=== PATIENT | female | born 1955 | race Hispanic/Latino ===

== ENCOUNTER 2018-06-24 08:19 | Inpatient (IN) | payer BC, MEDICAID, OTHER ==
[2018-06-24 08:22] VITALS: BMI 39.6
--- NOTE | 2018-06-24 09:39 | ED PDOC ---
HPI: Abdomen History Per: Patient History/Exam Limitations: no limitations Location Of Pain/Discomfort: RUQ Quality Of Discomfort: "Pain" Associated Symptoms: Nausea, Vomiting Additional Complaint(s): Pt is a 62 y/o female with hx of OA, Gastric Sleeve surgery (Jan), and obesity, presents to ED with complaints of acute abdominal pain and intractable vomiting. States she woke up this morning at 5am with severe RUQ abdominal pain and numerous episodes of yellow vomiting and an inability to tolerate fluids. She also had subjective fevers and chills. She rates abdominal pain 9/10 in intensity, non radiating, sharp, and worse with movements. States she had a bowel movement this morning which she denies any bloody or tarry stools. Denies any recent illness, cough/congestion, recent alcohol or NSAID ingestion. States she had popcorn and a small meal last night. PMD: Dr. Sanches PMHX: OA, Gastric Sleeve surgery (Jan), and obesity PSurgHx: Cholecystectomy (5+ years ago), Umbilical Hernia repair, TKR, Gastric Sleeve (Jan) Medications: Celebrex Allergies: Morphine (states bp temp droped to 92 after receiving medication may years ago) Social: denies smoking, heavy alcohol, or illicit drug use <Macho Trejo - Last Filed: 06/24/18 15:41> <Hunter Rea - Last Filed: 06/25/18 12:24> Time Seen by Provider: 06/24/18 09:18 Chief Complaint (Nursing): Abdominal Pain Past Medical History Reviewed: Historical Data, Nursing Documentation, Vital Signs Vital Signs: Last Vital Signs Temp 97.6 F 06/24/18 08:22 Pulse 75 06/24/18 08:22 Resp 18 06/24/18 08:22 BP 136/67 06/24/18 08:22 Pulse Ox 99 06/24/18 08:22 - Medical History PMH: Anxiety, Arthritis, Bronchitis (2 MONTHS AGO NOT HOSPITALIZED), Gall Bladder Disease, Kidney Stones, Chronic Kidney Disease - Surgical History Surgical History: Cholecystectomy, Endoscopy - Family History Family History: States: No Known Family Hx <Macho Trejo - Last Filed: 06/24/18 15:41> Vital Signs: Last Vital Signs Temp 99.1 F 06/25/18 08:39 Pulse 97 H 06/25/18 08:39 Resp 20 06/25/18 08:39 BP 104/74 06/25/18 08:39 Pulse Ox 97 06/25/18 08:39 <Hunter Rea - Last Filed: 06/25/18 12:24> - Home Medications Home Medications: Ambulatory Orders Medication Instructions Recorded Biotin 1 cap PO DAILY 06/24/18 Calcium Citrate [Calcitrate] 1 tab PO DAILY 06/24/18 Celecoxib [celeBREX] 200 mg PO DAILY PRN 06/24/18 Cyanocobalamin [Vitamin B12 1000 1 tab PO DAILY 06/24/18 mcg Tab] Multivitamin [Multi-Vitamin Daily] 1 tab PO DAILY 06/24/18 Oxycodone HCl/Acetaminophen 1 tab PO Q8 PRN 06/24/18 [Percocet 10-325 mg Tablet] - Allergies Allergies/Adverse Reactions: Allergies Allergy/AdvReac Type Severity Reaction Status Date / Time No Known Allergies Allergy none Verified 06/25/18 08:01 Review of Systems Constitutional: Positive for: Fever, Chills ENT: Negative for: Ear Pain, Throat Swelling Cardiovascular: Negative for: Chest Pain, Palpitations, Orthopnea Respiratory: Negative for: Cough Gastrointestinal: Positive for: Nausea, Vomiting, Abdominal Pain. Negative for: Diarrhea, Melena, Hematochezia, Hematemesis Genitourinary Female: Negative for: Dysuria <Macho Trejo - Last Filed: 06/24/18 15:41> ROS Statement: Except As Marked, All Systems Reviewed And Found Negative <Hunter Rea - Last Filed: 06/25/18 12:24> Physical Exam - Physical Exam Appears: Positive for: In Acute Distress (Moderately distressed, actively vomiting and dry heaving) Head Exam: Positive for: ATRAUMATIC Skin: Positive for: Normal Color. Negative for: Diaphoresis ENT: Positive for: Normal ENT Inspection. Negative for: Nasal Congestion Neck: Positive for: Normal, Painless ROM Cardiovascular/Chest: Positive for: Regular Rate, Rhythm Respiratory: Positive for: Normal Breath Sounds. Negative for: Accessory Muscle Use, Crackles, Wheezing Gastrointestinal/Abdominal: Positive for: Bowel Sounds, Soft, Tenderness (RUQ and Epigastric region on mild palpation, no distension, bulging, organomegaly or gaurding ) Neurological/Psych: Positive for: Awake, Alert <Lasha Trejozeniakrishna - Last Filed: 06/24/18 15:41> - Reviewed Nursing Documentation Reviewed: Yes Vital Signs Reviewed: Yes <Hunter Rea - Last Filed: 06/25/18 12:24> - Laboratory Results Result Diagrams: 06/24/18 09:55 06/24/18 09:55 - ECG O2 Sat by Pulse Oximetry: 99 <Neil,Kellykrishna - Last Filed: 06/24/18 15:41> - Laboratory Results Result Diagrams: 06/25/18 05:55 06/25/18 05:55 Lab Results: pCO2 36 mm/Hg (35-45) 06/24/18 16:28 pO2 63 mm/Hg (80-100) L 06/24/18 16:28 HCO3 24.2 mmol/L (21-28) 06/24/18 16:28 ABG pH 7.42 (7.35-7.45) 06/24/18 16:28 ABG Total CO2 24.5 mmol/L (22-28) 06/24/18 16:28 ABG O2 Saturation 95.8 % (95-98) 06/24/18 16:28 ABG Base Excess -0.7 mmol/L (-2.0-3.0) 06/24/18 16:28 Leonard Test Yes 06/24/18 16:28 ABG Potassium 4.1 mmol/L (3.6-5.2) 06/24/18 16:28 A-a O2 Difference 42.0 mm/Hg 06/24/18 16:28 Sodium 135.0 mmol/L (132-148) 06/24/18 16:28 Chloride 106.0 mmol/L (98-107) 06/24/18 16:28 Glucose 158 mg/dL (65-105) H 06/24/18 16:28 Lactate 1.2 mmol/L (0.7-2.1) 06/24/18 16:28 FiO2 21.0 % 06/24/18 16:28 PT 14.2 Seconds (9.8-13.1) H 06/25/18 05:55 INR 1.3 06/25/18 05:55 APTT 31.5 Seconds (25.6-37.1) 06/25/18 05:55 Total Bilirubin 0.9 mg/dl (0.2-1.3) 06/25/18 05:55 AST 19 U/L (14-36) 06/25/18 05:55 ALT 28 U/L (9-52) 06/25/18 05:55 Alkaline Phosphatase 91 U/L (38-126) 06/25/18 05:55 Total Protein 6.4 G/DL (6.3-8.2) 06/25/18 05:55 Albumin 3.3 g/dL (3.5-5.0) L 06/25/18 05:55 Globulin 3.1 gm/dL (2.2-3.9) 06/25/18 05:55 Albumin/Globulin Ratio 1.1 (1.0-2.1) 06/25/18 05:55 Lipase 24 U/L (23-300) 06/24/18 09:55 Urine Color Yellow (YELLOW) 06/24/18 13:00 Urine Clarity Clear (Clear) 06/24/18 13:00 Urine pH 6.0 (5.0-8.0) 06/24/18 13:00 Ur Specific [place] > 1.060 (1.003-1.030) H 06/24/18 13:00 Urine Protein Negative mg/dL (NEGATIVE) 06/24/18 13:00 Urine Glucose (UA) Neg mg/dL (NEGATIVE) 06/24/18 13:00 Urine Ketones Trace mg/dL (NEGATIVE) 06/24/18 13:00 Urine Blood Negative (NEGATIVE) 06/24/18 13:00 Urine Nitrate Negative (NEGATIVE) 06/24/18 13:00 Urine Bilirubin Negative (NEGATIVE) 06/24/18 13:00 Urine Urobilinogen 0.2-1.0 mg/dL (0.2-1.0) 06/24/18 13:00 Ur Leukocyte Esterase Neg Marilyn/uL (Negative) 06/24/18 13:00 Urine RBC (Auto) 2 /hpf (0-3) 06/24/18 13:00 Urine Microscopic WBC < 1 /hpf (0-5) 06/24/18 13:00 Ur Squamous Epith Cells 1 /hpf (0-5) 06/24/18 13:00 <Orbelyan,Gerasim A - Last Filed: 06/25/18 12:24> Medical Decision Making Medical Decision Making: Pt is a 62 y/o female with hx of OA, Gastric Sleeve surgery (Jan), and obesity, presents to ED with complaints of acute abdominal pain and intractable vomiting. Zofran Reglan NS 1000L Toradol 30mg po x2 CBC, CMP, Lipase Abdomen/Pelvis CT 1020 Pt reassessed, states abdominal pain somewhat improved and vomiting is resolved CBC WBC 17, CMP, Lipase normal 1500 Pt re-assessed, states she still has abdominal pain, Toradol 30mg IV ordered Abdomen CT report reviewed: Findings suspicious for inflamed or infectious mid jejunal diverticulum close to midline but at RUQ associatd with short segment thickening at the adjacent jejucum. Discussed with Dr. Nath GI and General Surgery Resident Cipr and Flagyl x1 [id number] Holguin, will admit patient <Macho Trejo - Last Filed: 06/24/18 15:41> Disposition - Patient ED Disposition Is Patient to be Admitted: Yes Discussed With : Robin Holguin Doctor Will See Patient In The: Hospital Counseled Patient/Family Regarding: Studies Performed, Diagnosis, Need For Followup - Disposition Disposition Time: 15:46 <Macho Trejo - Last Filed: 06/24/18 15:41> - Pt Status Changed To: Hospital Disposition Of: Inpatient - Admit Certification Admit to Inpatient:: After my assessment, the patient will require hospitalization for at least two midnights. This is because of the severity of symptoms shown, intensity of services needed, and/or the medical risk in this patient being treated as an outpatient. - POA Present On Arrival: None <Hunter Rea - Last Filed: 06/25/18 12:24> - Clinical Impression Clinical Impression: Acute abdominal pain in right upper quadrant, Intractable vomiting, Diverticulitis, jejunum - Disposition Condition: FAIR
[2018-06-24] MEDS ORDERED: Sodium Chloride 0.9% 1,000 ML IV STA ×2 (09:51→15:31)
[2018-06-24 10:08] LABS: BASO # 0.1 K/uL (0.0-0.2); BASO % 0.4 % (0.0-2.0); EOS % 0.1 % (0.0-4.0); HEMOGLOBIN 14.9 g/dL (12.0-16.0); LYMPH # 0.9 K/uL (1.0-4.3); LYMPH % 4.9 % (20.0-40.0); MEAN CELL VOLUME 74.8 fl (81.0-99.0); MEAN CORPUSCULAR HEMOGLOBIN 23.8 pg (27.0-31.0); MEAN CORPUSCULAR HGB CONC 31.8 g/dL (33.0-37.0); MEAN PLATELET VOLUME 7.5 fl (7.2-11.7); MONO # 0.4 K/uL (0.0-0.8); MONO % 2.5 % (0.0-10.0); NEUT # 16.5 K/uL (1.8-7.0); NEUT % 92.1 % (50.0-75.0); PLATELET COUNT 325 K/uL (130-400); RBC 6.28 Mil/uL (3.80-5.20); RED CELL DISTRIBUTION WIDTH 17.8 % (11.5-14.5); WHITE BLOOD COUNT 17.9 K/uL (4.8-10.8)
[2018-06-24 10:11] LABS: ALB/GLOB RATIO 1.2 (1.0-2.1); ALBUMIN 4.1 g/dL (3.5-5.0); ALT/SGPT 17 U/L (9-52); AST/SGOT 20 U/L (14-36); BLOOD UREA NITROGEN 19 mg/dl (7-17); CALCIUM 9.6 mg/dL (8.4-10.2); GFR NON-AFRICAN AMERICAN > 60; LIPASE 24 U/L (23-300)
[2018-06-24 11:28] LABS: BANDS 1 % (0-2); LYMPHOCYTE 5 % (20-50); MONOCYTE 6 % (0-10); NEUTROPHIL 88 % (42-75); PLATELET ESTIMATE NORMAL (NORMAL); TOTAL CELLS COUNTED 100
[2018-06-24 11:29] LABS: ANISOCYTOSIS SLIGHT; OVALOCYTES SLIGHT; TEARDROP CELLS SLIGHT
[2018-06-24] MEDS ORDERED: Sodium Chloride 0.9% 50 ML IV ONE (11:48)
[2018-06-24] MEDS ORDERED: Iohexol 300 100 ML IJ ONE (11:48)
[2018-06-24 13:44] LABS: SQUAMOUS EPITHIAL 1 /hpf (0-5); URINE BILIRUBIN NEGATIVE (NEGATIVE); URINE BLOOD NEGATIVE (NEGATIVE); URINE CLARITY CLEAR (Clear); URINE COLOR YELLOW (YELLOW); URINE GLUCOSE (UA) NEG (NEGATIVE); URINE LEUKOCYTE ESTERASE NEG Leu/uL (Negative); URINE PROTEIN NEGATIVE (NEGATIVE); URINE UROBILINOGEN 0.2-1.0 mg/dL (0.2-1.0)
--- NOTE | 2018-06-24 14:24 | CT ---
Date of service: 06/24/2018 PROCEDURE: CT Abdomen and Pelvis with contrast HISTORY: acute abdominal pain/vomiting, s/p gastric sleeve COMPARISON: Abdomen and pelvis CT with contrast 08/09/2015. TECHNIQUE: Following the intravenous administration of iodinated contrast material, a CT examination of the abdomen and pelvis was performed from the domes of the diaphragms to the symphysis pubis with reformatted datasets provided in axial, sagittal and coronal planes. Oral contrast was not administered as per referring physician request. Contrast dose: Omnipaque 300, 95 cc Radiation dose: Total exam DLP = 794.34 mGy-cm. This CT exam was performed using one or more of the following dose reduction techniques: Automated exposure control, adjustment of the mA and/or kV according to patient size, and/or use of iterative reconstruction technique. FINDINGS: LOWER THORAX: Limited linear atelectasis or fibrosis in the bilateral bases once again. No infiltrate. Limited bilateral basilar atelectasis identified. Borderline cardiomegaly. Small hiatal hernia identified. LIVER: A stable benign lucency is seen at the left lobe liver once again with liver otherwise borderline enlarged. Prior medial left lobe lucencies are not identified at this time. No intrahepatic biliary dilatation. GALLBLADDER AND BILE DUCTS: Prior cholecystectomy. CBD normal caliber. PANCREAS: Unremarkable. No gross lesion or ductal dilatation. SPLEEN: Unremarkable. ADRENALS: Unremarkable. No mass. KIDNEYS AND URETERS: Extensive parapelvic cysts are identified bilaterally without obstructive uropathy. No radiodense urolithiasis is seen at the right kidney with a punctate intrarenal calcified at the upper midpole left kidney and also the lower pole, nonobstructive. Ureters normal caliber bilaterally. VASCULATURE: Nonaneurysmal abdominal aortic calcific atherosclerotic changes are identified. BOWEL: Postoperative changes are identified suggesting prior gastric sleeve surgery as clinically noted. Prior lap band now removed. Stomach is collapsed not well evaluated. No bowel obstruction appreciable throughout the abdomen and pelvis. Hepatic flexure in a portion of the transverse colon are interposed between the anterior abdominal wall and the liver. There is a short segment of mid small bowel best seen in images 92 through 108 which appears thick-walled and may reflect a mid jejunal loop. Sub cm calcification is seen within the lumen of this loop and to the right immediately lateral to it is a thin walled structure filled with gas and fluid layering in the dependent portion. This structure measures 3.7 x 3.5 x 7.6 cm (transverse by anteroposterior by superoinferior dimensions). Trace reaction is seen in the mesentery adjacent to the proximal portion of this structure which is thin walled. This suspicious for a large jejunal diverticulum potentially minimally and infected or inflammatory. Mural thickening may be infectious or inflammatory at the jejunal segment associated with it versus neoplasm. Further clinical correlation is strongly advised. Sigmoid diverticulosis is reiterated without complication. APPENDIX: No CT evidence of appendicitis. PERITONEUM: See bowel section for limited peritoneal reaction at central abdomen with perineum otherwise remarkable for a small fat containing umbilical hernia and a similar but slightly larger ventral abdominal hernia somewhat cephalad to the umbilicus, also only containing fat. LYMPH NODES: Unremarkable. No enlarged lymph nodes. BLADDER: Unremarkable. REPRODUCTIVE: Unremarkable. BONES: Upper limits grade 1 spondylolisthesis L4-5 again evident, degenerative. No spondylolysis once again. OTHER FINDINGS: None. IMPRESSION: 1. Findings suspicious for an inflamed or infectious mid jejunal diverticulum close to midline but at the right upper quadrant 10.6 cm greatest dimension associated with short segmental thickening at the adjacent jejunum. Is unclear whether jejunal thickening is related to infection or inflammatory with neoplasm not excluded at the loop specifically. Clinical follow-up advised. 2. Prior cholecystectomy noted once again. 3. Additional findings as discussed above.
[2018-06-24] MEDS ORDERED: Ciprofloxacin 400mg/200ml D5W 400 MG/200 ML BAG IVPB STA (14:45)
[2018-06-24] MEDS ORDERED: metroNIDAZOLE 500mg/100ml NS 100 ML IVPB STA (14:46)
[2018-06-24] MEDS ORDERED: metroNIDAZOLE 500mg/100ml NS 100 ML IVPB ONE (15:06)
--- NOTE | 2018-06-24 15:56 | CP.PCM.CON ---
History of Present Illness - History of Present Illness History of Present Illness: General Surgery Consult Note for Dr. Rodriguez This is a 62F with a PMH of arthritis and a PSH of a laparoscopic sleeve gastrectomy which she reports no adverse affects from. She lost 30lbs since the surgery. She presents today to the ER due to acute onset abdominal pain this morning. She reports she has never felt anything like this before. The pain is made worse with movement. Nothing makes it better. She reports her last BM was this morning and was normal. She reports yellow vomitus. She denies any fevers or chills at home. CT in the ED was significant for small bowel thickening possibly due to infection or mass and a possible jejunal diverticula. PMH: HTN PSH: Lap band, Lap band removal, Lap sleeve ALL: Denies however chart reflects morphine Social: Denies Vices Review of Systems - Constitutional Constitutional: Chills. absent: Anorexia - EENT Eyes: absent: Blind Spots, Blurred Vision - Cardiovascular Cardiovascular: absent: Chest Pain, Chest Pain at Rest, Dyspnea - Respiratory Respiratory: absent: Cough, Dyspnea - Gastrointestinal Gastrointestinal: Abdominal Pain, Bloating, Nausea, Vomiting. absent: Belching, Change in Bowel Habits, Change in Stool Character, Hematemesis, Hematochezia - Genitourinary Genitourinary: absent: Change in Urinary Stream Past Patient History - Past Medical History & Family History Past Medical History?: Yes - Past Social History Smoking Status: Former Smoker - CARDIAC Hx Cardiac Disorders: No - PULMONARY Hx Bronchitis: Yes (2 MONTHS AGO NOT HOSPITALIZED) - NEUROLOGICAL Hx Neurological Disorder: No - HEENT Hx HEENT Problems: No - RENAL Hx Chronic Kidney Disease: Yes Hx Kidney Stones: Yes - ENDOCRINE/METABOLIC Hx Endocrine Disorders: No - HEMATOLOGICAL/ONCOLOGICAL Hx Blood Disorders: Yes (Lichen Planus AUTO IMMUNE DISEASE ) Hx Bruising: Yes - INTEGUMENTARY Hx Dermatological Problems: Yes Other/Comment: BRUISES EASILY ON ARMS - MUSCULOSKELETAL/RHEUMATOLOGICAL Hx Arthritis: Yes - GASTROINTESTINAL Hx Gall Bladder Disease: Yes - GENITOURINARY/GYNECOLOGICAL Hx Genitourinary Disorders: Yes (ENDOMETRIAL POLYP) - PSYCHIATRIC Hx Anxiety: Yes - SURGICAL HISTORY Hx Cholecystectomy: Yes - ANESTHESIA Hx Anesthesia: Yes Hx Anesthesia Reactions: No Hx Malignant Hyperthermia: No Meds Allergies/Adverse Reactions: Allergies Allergy/AdvReac Type Severity Reaction Status Date / Time morphine AdvReac temperature Verified 04/25/16 16:13 drop - Medications Medications: Current Medications Sodium Chloride (Sodium Chloride 0.9%) 1,000 mls @ 125 mls/hr IV .Q8H STA Stop: 06/24/18 23:30 Physical Exam - Constitutional Appears: Non-toxic, No Acute Distress - Head Exam Head Exam: ATRAUMATIC, NORMOCEPHALIC - Eye Exam Eye Exam: EOMI - ENT Exam ENT Exam: Mucous Membranes Moist - Respiratory Exam Respiratory Exam: NORMAL BREATHING PATTERN - Cardiovascular Exam Cardiovascular Exam: REGULAR RHYTHM - GI/Abdominal Exam GI & Abdominal Exam: Distended, Guarding, Soft, Tenderness. absent: Hernia, Rigid - Neurological Exam Neurological exam: Alert, Oriented x3 - Psychiatric Exam Psychiatric exam: Normal Affect, Normal Mood - Skin Skin Exam: Dry, Intact Results - Vital Signs Recent Vital Signs: Last Vital Signs Temp 98.1 F 06/24/18 12:39 Pulse 87 06/24/18 12:39 Resp 18 06/24/18 12:39 BP 135/69 06/24/18 12:39 Pulse Ox 99 06/24/18 15:46 - Labs Result Diagrams: 06/24/18 09:55 06/24/18 09:55 Labs: Laboratory Results - last 24 hr 06/24/18 06/24/18 06/24/18 09:55 09:55 13:00 WBC 17.9 H D RBC 6.28 H Hgb 14.9 Hct 47.0 MCV 74.8 L D MCH 23.8 L MCHC 31.8 L RDW 17.8 H Plt Count 325 MPV 7.5 Neut % (Auto) 92.1 H Lymph % (Auto) 4.9 L [place]ley % (Auto) 2.5 Eos % (Auto) 0.1 Baso % (Auto) 0.4 Neut # (Auto) 16.5 H Lymph # (Auto) 0.9 L [place] # (Auto) 0.4 Eos # (Auto) 0.0 Baso # (Auto) 0.1 Neutrophils % (Manual) 88 H Band Neutrophils % 1 Lymphocytes % (Manual) 5 L Monocytes % (Manual) 6 Platelet Estimate Normal Anisocytosis (manual) Slight Tear Drop Cells Slight Ovalocytes Slight Sodium 145 Potassium 3.7 Chloride 106 Carbon Dioxide 25 Anion Gap 18 BUN 19 H Creatinine 0.5 L Est GFR ( Amer) > 60 Est GFR (Non-Af Amer) > 60 Random Glucose 133 H Calcium 9.6 Total Bilirubin 0.6 AST 20 ALT 17 Alkaline Phosphatase 126 Total Protein 7.4 Albumin 4.1 Globulin 3.4 Albumin/Globulin Ratio 1.2 Lipase 24 Urine Color Yellow Urine Clarity Clear Urine pH 6.0 Ur Specific [place] > 1.060 H Urine Protein Negative Urine Glucose (UA) Neg Urine Ketones Trace Urine Blood Negative Urine Nitrate Negative Urine Bilirubin Negative Urine Urobilinogen 0.2-1.0 Ur Leukocyte Esterase Neg Urine RBC (Auto) 2 Urine Microscopic WBC < 1 Ur Squamous Epith Cells 1 - Imaging and Cardiology CT scan - abdomen Status: Image reviewed by me, Report reviewed by me CT scan - pelvis Status: Image reviewed by me, Report reviewed by me Assessment & Plan - Assessment and Plan (Free Text) Assessment: 62F with abdominal pain possibly secondary to enteritis, or jejunal diverticula NPO IVF IV ABX Pain control Serial abdominal exams Possible or if symptoms do not improve Discussed with Dr. Michael Russell PGY3
--- NOTE | 2018-06-24 15:57 | CP.PCM.HP ---
<Kris Menon - Last Filed: 06/24/18 16:15> History of Present Illness - History of Present Illness History of Present Illness: CC: "I've been vomiting and having abdominal pain all morning" HPI: 62 y/o female with PMHx of polyarticular osteoarthritis, Gastric Sleeve surgery (Jan), and obesity, presented to ED with complaints of abdominal pain associated with intractable vomiting. Pt reports going to be in her usual state of good health last night but woke up with mild RUQ abdominal pain. She attempted position changes and rest but the pain worsened. She then started having episodes of NBNB emesis (>10 episodes today) that were primarily made up of consumed stomach contents. Vomiting continued to worsen to the point where she began dry heaving. Pain is located in the RUQ, sharp in character, 8/10, constant, and radiates to the LUQ. No alleviating factors but worsened with attempted PO intake and movement. Pt also reports associated subjective fevers and chills. Denies any diarrhea, hematemesis, coffee ground emesis, melena/hematochezia, diarrhea/constipation. No other complaints/concerns. Denies any sick contacts. No recent ETOH abuse and reports only sporadic celebrex consumption. ROS: 12 systems reviewed, found to be negative, unless otherwise noted in HPI. PMD: Dr. Sanches PMHX: polyarticular osteoarthritis MEDS: Celebrex ALL: hx of reaction to morphine in past, but tolerated during recent TKR w/o issue PSurgHx: Cholecystectomy (5+ years ago), Umbilical Hernia repair, TKR, Gastric Sleeve (Jan), 2x , L-TKR PHospHx: for surgeries/deliveries, otherwise denies SocialHx: denies smoking, heavy alcohol, or illicit drug use FamilyHx: denies hx of [place], [place], Stroke Next of Kin: Sabino, Code Status: full code Present on Admission - Present on Admission Any Indicators Present on Admission: No History of DVT/PE: No History of Uncontrolled Diabetes: No Urinary Catheter: No Decubitus Ulcer Present: No Past Patient History - Past Medical History & Family History Past Medical History?: Yes - Past Social History Smoking Status: Former Smoker Alcohol: None Drugs: Denies Home Situation {Lives}: With Family - CARDIAC Hx Cardiac Disorders: No - PULMONARY Hx Bronchitis: Yes (2 MONTHS AGO NOT HOSPITALIZED) - NEUROLOGICAL Hx Neurological Disorder: No - HEENT Hx HEENT Problems: No - RENAL Hx Chronic Kidney Disease: Yes Hx Kidney Stones: Yes - ENDOCRINE/METABOLIC Hx Endocrine Disorders: No - HEMATOLOGICAL/ONCOLOGICAL Hx Blood Disorders: Yes (Lichen Planus AUTO IMMUNE DISEASE ) Hx Bruising: Yes - INTEGUMENTARY Hx Dermatological Problems: Yes Other/Comment: BRUISES EASILY ON ARMS - MUSCULOSKELETAL/RHEUMATOLOGICAL Hx Arthritis: Yes - GASTROINTESTINAL Hx Gall Bladder Disease: Yes - GENITOURINARY/GYNECOLOGICAL Hx Genitourinary Disorders: Yes (ENDOMETRIAL POLYP) - PSYCHIATRIC Hx Anxiety: Yes - SURGICAL HISTORY Hx Cholecystectomy: Yes - ANESTHESIA Hx Anesthesia: Yes Hx Anesthesia Reactions: No Hx Malignant Hyperthermia: No Meds Allergies/Adverse Reactions: Allergies Allergy/AdvReac Type Severity Reaction Status Date / Time morphine AdvReac temperature Verified 08/09/15 16:13 drop Physical Exam - Constitutional Appears: Non-toxic, No Acute Distress - Head Exam Head Exam: ATRAUMATIC, NORMOCEPHALIC - Eye Exam Eye Exam: EOMI, PERRL. absent: Scleral icterus Pupil Exam: NORMAL ACCOMODATION - ENT Exam ENT Exam: Mucous Membranes Moist, Normal Exam, Normal Oropharynx, TM's Normal Bilaterally - Neck Exam Neck exam: Positive for: Normal Inspection - Respiratory Exam Respiratory Exam: Clear to Auscultation Bilateral, NORMAL BREATHING PATTERN. absent: Rales, Rhonchi, Wheezes, Respiratory Distress - Cardiovascular Exam Cardiovascular Exam: REGULAR RHYTHM, RRR, +S1, +S2. absent: Tachycardia, Irregular Rhythm, JVD, Rubs, Systolic Murmur - GI/Abdominal Exam GI & Abdominal Exam: Guarding (voluntary guarding ), Normal Bowel Sounds, Soft, Tenderness (generalized ). absent: Distended, Firm, Rebound, Rigid - Extremities Exam Extremities exam: Positive for: normal capillary refill, normal inspection, pedal pulses present. Negative for: calf tenderness, joint swelling, pedal edema - Neurological Exam Neurological exam: Alert, CN II-XII Intact, Normal Gait, Oriented x3 - Psychiatric Exam Psychiatric exam: Normal Affect, Normal Mood - Skin Skin Exam: Dry, Intact, Normal Color, Warm Results - Vital Signs Recent Vital Signs: Last Vital Signs Temp 98.1 F 06/24/18 12:39 Pulse 87 06/24/18 12:39 Resp 18 06/24/18 12:39 BP 135/69 06/24/18 12:39 Pulse Ox 99 06/24/18 15:46 - Labs Result Diagrams: 06/24/18 09:55 06/24/18 09:55 Labs: Laboratory Results - last 24 hr 06/24/18 06/24/18 06/24/18 09:55 09:55 13:00 WBC 17.9 H D RBC 6.28 H Hgb 14.9 Hct 47.0 MCV 74.8 L D MCH 23.8 L MCHC 31.8 L RDW 17.8 H Plt Count 325 MPV 7.5 Neut % (Auto) 92.1 H Lymph % (Auto) 4.9 L [place] % (Auto) 2.5 Eos % (Auto) 0.1 Baso % (Auto) 0.4 Neut # (Auto) 16.5 H Lymph # (Auto) 0.9 L [place] # (Auto) 0.4 Eos # (Auto) 0.0 Baso # (Auto) 0.1 Neutrophils % (Manual) 88 H Band Neutrophils % 1 Lymphocytes % (Manual) 5 L Monocytes % (Manual) 6 Platelet Estimate Normal Anisocytosis (manual) Slight Tear Drop Cells Slight Ovalocytes Slight Sodium 145 Potassium 3.7 Chloride 106 Carbon Dioxide 25 Anion Gap 18 BUN 19 H Creatinine 0.5 L Est GFR ( Amer) > 60 Est GFR (Non-Af Amer) > 60 Random Glucose 133 H Calcium 9.6 Total Bilirubin 0.6 AST 20 ALT 17 Alkaline Phosphatase 126 Total Protein 7.4 Albumin 4.1 Globulin 3.4 Albumin/Globulin Ratio 1.2 Lipase 24 Urine Color Yellow Urine Clarity Clear Urine pH 6.0 Ur Specific [place] > 1.060 H Urine Protein Negative Urine Glucose (UA) Neg Urine Ketones Trace Urine Blood Negative Urine Nitrate Negative Urine Bilirubin Negative Urine Urobilinogen 0.2-1.0 Ur Leukocyte Esterase Neg Urine RBC (Auto) 2 Urine Microscopic WBC < 1 Ur Squamous Epith Cells 1 Assessment & Plan - Assessment and Plan (Free Text) Assessment: 62 y/o female with a PMHx of polyarticular osteoarthritis admitted for abdominal pain with intractable vomiting secondary to jejunal diverticulitis. Plan: 1) Jejunal Diverticulitis w Leukocytosis -NPO -IV Fluid therapy -Pain control as per pain scale -nausea/vomiting control with Zofran PRN -IV Zosyn -Metronidazole 500mg Q8H -GI consult -Gen/Surg consult -lipase WNL -WBC 17.9 -repeat AM labs 2) Prophylaxis Lovenox 40mg SC QD 3) Diet -NPO 4) Code status -full code <Robin Holguin D - Last Filed: 06/24/18 16:41> Results - Vital Signs Recent Vital Signs: Last Vital Signs Temp 100.1 F H 06/24/18 16:32 Pulse 97 H 06/24/18 16:32 Resp 16 06/24/18 16:32 BP 108/56 L 06/24/18 16:32 Pulse Ox 97 06/24/18 16:32 - Labs Result Diagrams: 06/24/18 09:55 06/24/18 09:55 Labs: Laboratory Results - last 24 hr 06/24/18 06/24/18 06/24/18 09:55 09:55 13:00 WBC 17.9 H D RBC 6.28 H Hgb 14.9 Hct 47.0 MCV 74.8 L D MCH 23.8 L MCHC 31.8 L RDW 17.8 H Plt Count 325 MPV 7.5 Neut % (Auto) 92.1 H Lymph % (Auto) 4.9 L [place] % (Auto) 2.5 Eos % (Auto) 0.1 Baso % (Auto) 0.4 Neut # (Auto) 16.5 H Lymph # (Auto) 0.9 L [place] # (Auto) 0.4 Eos # (Auto) 0.0 Baso # (Auto) 0.1 Neutrophils % (Manual) 88 H Band Neutrophils % 1 Lymphocytes % (Manual) 5 L Monocytes % (Manual) 6 Platelet Estimate Normal Anisocytosis (manual) Slight Tear Drop Cells Slight Ovalocytes Slight Sodium 145 Potassium 3.7 Chloride 106 Carbon Dioxide 25 Anion Gap 18 BUN 19 H Creatinine 0.5 L Est GFR ( Amer) > 60 Est GFR (Non-Af Amer) > 60 Random Glucose 133 H Calcium 9.6 Total Bilirubin 0.6 AST 20 ALT 17 Alkaline Phosphatase 126 Total Protein 7.4 Albumin 4.1 Globulin 3.4 Albumin/Globulin Ratio 1.2 Lipase 24 Urine Color Yellow Urine Clarity Clear Urine pH 6.0 Ur Specific [place] > 1.060 H Urine Protein Negative Urine Glucose (UA) Neg Urine Ketones Trace Urine Blood Negative Urine Nitrate Negative Urine Bilirubin Negative Urine Urobilinogen 0.2-1.0 Ur Leukocyte Esterase Neg Urine RBC (Auto) 2 Urine Microscopic WBC < 1 Ur Squamous Epith Cells 1 Attending/Attestation - Attestation I have personally seen and examined this patient.: Yes I have fully participated in the care of the patient.: Yes I have reviewed all pertinent clinical information: Yes Notes (Text): 06/24/18 16:36 Patient seen and examined with resident. Case discussed and agreed with assessment and plan of management. CT scan showed thickening at mid-portion of jejunum suspicious for diverticulitis.
[2018-06-24] MEDS ORDERED: Ciprofloxacin 400mg/200ml D5W 400 MG/200 ML BAG IVPB ONE (16:16)
[2018-06-24] MEDS ORDERED: Morphine 4 MG/ML VIAL IVP PRN (16:19)
[2018-06-24 16:44] LABS: ABG ALLEN TEST YES; ARTERIAL BLOOD GAS HCO3 24.2 mmol/L (21-28); ARTERIAL BLOOD GAS O2 SAT 95.8 % (95-98); ARTERIAL BLOOD GAS PCO2 36 mm/Hg (35-45); ARTERIAL BLOOD GAS PH 7.42 (7.35-7.45); ARTERIAL BLOOD GAS PO2 63 mm/Hg (80-100); ARTERIAL BLOOD GAS TCO2 24.5 mmol/L (22-28)
[2018-06-24 17:09] LABS: INR 1.1; PROTHROMBIN TIME 12.3 Seconds (9.8-13.1)
[2018-06-24 17:11] LABS: PARTIAL THROMBOPLASTIN TIME 32.4 Seconds (25.6-37.1)
[2018-06-24] MEDS: metroNIDAZOLE 500mg/100ml NS 100 ML IVPB SCH (17:59)
[2018-06-24] MEDS: Lactated Ringer's 1,000 ML IV SCH ×2 (18:51→22:29)
[2018-06-24] MEDS: HYDROmorphone 0.5 mg/0.5 ml ISec IVP PRN (21:11)
[2018-06-24] MEDS: Piperacillin/Tazobact 3.375 GM in Sodium Chloride 0.9% 100 ML IVPB SCH (21:12)
[2018-06-25] MEDS: metroNIDAZOLE 500mg/100ml NS 100 ML IVPB SCH (00:12)
[2018-06-25] MEDS: Morphine 4 MG/ML VIAL IVP PRN ×2 (02:50→11:23)
[2018-06-25] MEDS: Lactated Ringer's 1,000 ML IV SCH ×4 (03:08→13:57)
[2018-06-25] MEDS: Piperacillin/Tazobact 3.375 GM in Sodium Chloride 0.9% 100 ML IVPB SCH ×4 (04:32→22:30)
[2018-06-25 06:39] LABS: HEMOGLOBIN 13.2 g/dL (12.0-16.0); MEAN CELL VOLUME 74.5 fl (81.0-99.0); MEAN CORPUSCULAR HEMOGLOBIN 23.3 pg (27.0-31.0); MEAN CORPUSCULAR HGB CONC 31.3 g/dL (33.0-37.0); RBC 5.68 Mil/uL (3.80-5.20); RED CELL DISTRIBUTION WIDTH 17.6 % (11.5-14.5); WHITE BLOOD COUNT 13.4 K/uL (4.8-10.8)
[2018-06-25 06:44] LABS: INR 1.3; PROTHROMBIN TIME 14.2 Seconds (9.8-13.1)
[2018-06-25 06:45] LABS: PARTIAL THROMBOPLASTIN TIME 31.5 Seconds (25.6-37.1)
[2018-06-25] MEDS: HYDROmorphone 0.5 mg/0.5 ml ISec IVP PRN (06:50)
[2018-06-25 07:08] LABS: ALB/GLOB RATIO 1.1 (1.0-2.1); ALBUMIN 3.3 g/dL (3.5-5.0); ALT/SGPT 28 U/L (9-52); AST/SGOT 19 U/L (14-36); BLOOD UREA NITROGEN 19 mg/dl (7-17); GFR NON-AFRICAN AMERICAN > 60
[2018-06-25] MEDS: Enoxaparin 40 mg Syringe SC SCH (09:45)
--- NOTE | 2018-06-25 10:53 | CP.PCM.PN ---
<Kris Menon - Last Filed: 06/25/18 10:54> Subjective - Date & Time of Evaluation Date of Evaluation: 06/25/18 Time of Evaluation: 10:53 - Subjective Subjective: pt seen and evaluated at bedside this morning. No acute events overnight. Pt reports no change in abdominal pain since yesterday, but reports no episodes of vomiting or diarrhea. Pain is controlled with medications. Remained NPO. No new complaints or concerns. Spiked low grade, 100.1 F temperature yesterday but today is afebrile and hemodynamically stable. Objective - Vital Signs/Intake and Output Vital Signs (last 24 hours): Temp Pulse Resp BP Pulse Ox 99.1 F 97 H 20 104/74 97 06/25/18 08:39 06/25/18 08:39 06/25/18 08:39 06/25/18 08:39 06/25/18 08:39 - Medications Medications: Current Medications Enoxaparin Sodium (Lovenox) 40 mg SC DAILY [facility]; Protocol Last Admin: 06/25/18 09:45 Dose: Not Given Hydromorphone HCl (Dilaudid) 0.5 mg IVP Q6 PRN PRN Reason: Pain, severe (8-10) Last Admin: 06/25/18 06:50 Dose: 0.5 mg Lactated Ringer's (Lactated Ringer's) 1,000 mls @ 150 mls/hr IV .Q6H40M [facility] Last Admin: 06/25/18 05:26 Dose: Not Given Piperacillin Sod/Tazobactam (Sod 3.375 gm/ Sodium Chloride) 100 mls @ 100 mls/hr IVPB Q6 [facility]; Protocol Last Admin: 06/25/18 09:48 Dose: 100 mls/hr Ketorolac Tromethamine (Toradol) 30 mg IVP Q6 PRN PRN Reason: Pain, Mild (1-3) Morphine Sulfate (Morphine) 2 mg IVP Q4 PRN PRN Reason: Pain, moderate (4-7) Last Admin: 06/25/18 02:50 Dose: 2 mg Ondansetron HCl (Zofran Inj) 4 mg IVP Q6 PRN PRN Reason: Nausea/Vomiting - Labs Labs: 06/25/18 05:55 06/25/18 05:55 PT 14.2 Seconds (9.8-13.1) H 06/25/18 05:55 INR 1.3 06/25/18 05:55 APTT 31.5 Seconds (25.6-37.1) 06/25/18 05:55 - Constitutional Appears: Non-toxic, No Acute Distress - Head Exam Head Exam: ATRAUMATIC - Eye Exam Eye Exam: EOMI, PERRL. absent: Scleral icterus - ENT Exam ENT Exam: Mucous Membranes Moist - Neck Exam Neck Exam: Full ROM. absent: Lymphadenopathy - Respiratory Exam Respiratory Exam: Clear to Ausculation Bilateral, NORMAL BREATHING PATTERN. absent: Rales, Rhonchi, Wheezes, Respiratory Distress - Cardiovascular Exam Cardiovascular Exam: REGULAR RHYTHM, RRR, +S1, +S2. absent: JVD, Murmur - GI/Abdominal Exam GI & Abdominal Exam: Guarding (voluntary guarding ), Soft, Tenderness (remains tender in RUQ/Epigastrium, no improvement ), Normal Bowel Sounds. absent: Distended, Firm, Rigid, Hernia, Mass, Pulsatile Mass - Extremities Exam Extremities Exam: Normal Capillary Refill. absent: Calf Tenderness, Pedal Edema, Tenderness - Neurological Exam Neurological Exam: Alert, Awake, CN II-XII Intact, Normal Gait, Oriented x3 - Psychiatric Exam Psychiatric exam: Normal Affect, Normal Mood - Skin Skin Exam: Dry, Intact, Normal Color, Warm Assessment and Plan - Assessment and Plan (Free Text) Assessment: 62 y/o female with a PMHx of polyarticular osteoarthritis admitted for abdominal pain with intractable vomiting secondary to jejunal diverticulitis. Plan: 1) Jejunal Diverticulitis w Leukocytosis -WBC improving -NPO -possible OR today as per surg team -IV Fluid therapy w LR -Pain control as per pain scale -nausea/vomiting control with Zofran PRN -IV Zosyn -GI consult -Gen/Surg consult -lipase WNL -repeat AM labs 2) Prophylaxis -SCDs -lovenox held for possible OR 3) Diet -NPO 4) Code status -full code <Robin Holguin D - Last Filed: 06/25/18 11:31> Objective - Vital Signs/Intake and Output Vital Signs (last 24 hours): Temp Pulse Resp BP Pulse Ox 99.1 F 97 H 20 104/74 97 06/25/18 08:39 06/25/18 08:39 06/25/18 08:39 06/25/18 08:39 06/25/18 08:39 - Medications Medications: Current Medications Enoxaparin Sodium (Lovenox) 40 mg SC DAILY [facility]; Protocol Last Admin: 06/25/18 09:45 Dose: Not Given Hydromorphone HCl (Dilaudid) 0.5 mg IVP Q6 PRN PRN Reason: Pain, severe (8-10) Last Admin: 06/25/18 06:50 Dose: 0.5 mg Lactated Ringer's (Lactated Ringer's) 1,000 mls @ 150 mls/hr IV .Q6H40M [facility] Last Admin: 06/25/18 05:26 Dose: Not Given Piperacillin Sod/Tazobactam (Sod 3.375 gm/ Sodium Chloride) 100 mls @ 100 mls/h r IVPB Q6 [facility]; Protocol Last Admin: 06/25/18 09:48 Dose: 100 mls/hr Ketorolac Tromethamine (Toradol) 30 mg IVP Q6 PRN PRN Reason: Pain, Mild (1-3) Morphine Sulfate (Morphine) 2 mg IVP Q4 PRN PRN Reason: Pain, moderate (4-7) Last Admin: 06/25/18 11:23 Dose: 2 mg Ondansetron HCl (Zofran Inj) 4 mg IVP Q6 PRN PRN Reason: Nausea/Vomiting - Labs Labs: 06/25/18 05:55 06/25/18 05:55 PT 14.2 Seconds (9.8-13.1) H 06/25/18 05:55 INR 1.3 06/25/18 05:55 APTT 31.5 Seconds (25.6-37.1) 06/25/18 05:55 Attending/Attestation - Attestation I have personally seen and examined this patient.: Yes I have fully participated in the care of the patient.: Yes I have reviewed all pertinent clinical information, including history, physical exam and plan: Yes Notes (Text): 06/25/18 11:29 Patient seen and examined with resident. Case discussed and agreed with assessment. 62 yo female diagnosed with jejunal diverticulitis, post gastric sleeve. Patient claimed she is presently pain free and has been afebrile since last night.
[2018-06-25] MEDS ORDERED: Lidocaine 1% w Epi 1:100,000 Inj ONE (14:35)
[2018-06-25] MEDS ORDERED: Bupivacaine HCl 0.5% PF (30 ml) Inj ONE (15:34)
[2018-06-25] MEDS ORDERED: Midazolam 2 MG/2 ML VIAL ONE (16:52)
[2018-06-25] MEDS ORDERED: Propofol 10 mg/ml Inj (20 ML) ONE (16:52)
[2018-06-25] MEDS ORDERED: Lidocaine/Epi 1% 1:100000 20 ML IJ ONE (17:15)
[2018-06-25] MEDS ORDERED: Bupivacaine 0.5% Inj(30mL) IJ ONE (17:15)
--- NOTE | 2018-06-25 17:20 | CP.PCM.CON ---
History of Present Illness - History of Present Illness History of Present Illness: 62 yo female presenting with severe midbadominal pain on day before admission. Ct demonstrated jejunal diverticululum associated with inflammation. Has been on antibiotics since yesterday and is now feeling better. Review of Systems - Constitutional Constitutional: absent: Chills - EENT Eyes: absent: Blurred Vision Ears: absent: Ear Discharge Nose/Mouth/Throat: absent: Epistaxis - Cardiovascular Cardiovascular: absent: Chest Pain - Respiratory Respiratory: absent: Dyspnea - Gastrointestinal Gastrointestinal: As Per HPI - Genitourinary Genitourinary: absent: Change in Urinary Stream Past Patient History - Past Medical History & Family History Past Medical History?: Yes - Past Social History Smoking Status: Never Smoked - CARDIAC Hx Cardiac Disorders: No - PULMONARY Hx Respiratory Disorders: No - NEUROLOGICAL Hx Neurological Disorder: No - HEENT Hx HEENT Problems: No - RENAL Hx Chronic Kidney Disease: No Other/Comment: kidney stone - ENDOCRINE/METABOLIC Hx Endocrine Disorders: No - HEMATOLOGICAL/ONCOLOGICAL Hx Blood Disorders: No - INTEGUMENTARY Hx Dermatological Problems: No - MUSCULOSKELETAL/RHEUMATOLOGICAL Hx Musculoskeletal Disorders: Yes Hx Falls: No Hx Spinal Stenosis: Yes - GASTROINTESTINAL Hx Gastrointestinal Disorders: No Hx Gall Bladder Disease: Yes - GENITOURINARY/GYNECOLOGICAL Hx Genitourinary Disorders: No - PSYCHIATRIC Hx Psychophysiologic Disorder: Yes Hx Anxiety: Yes Hx Substance Use: No - SURGICAL HISTORY Hx Surgeries: Yes Hx Section: Yes Hx Cholecystectomy: Yes Hx Herniorrhaphy: Yes (umbilical) Hx Joint Replacement: Yes (left tkr) - ANESTHESIA Hx Anesthesia: Yes Hx Anesthesia Reactions: No Hx Malignant Hyperthermia: No Has any member of the family had a problem w/ anesthesia?: No Meds Allergies/Adverse Reactions: Allergies Allergy/AdvReac Type Severity Reaction Status Date / Time No Known Allergies Allergy none Verified 06/25/18 08:01 - Medications Medications: Current Medications Enoxaparin Sodium (Lovenox) 40 mg SC DAILY [facility]; Protocol Last Admin: 06/25/18 09:45 Dose: Not Given Hydromorphone HCl (Dilaudid) 0.5 mg IVP Q6 PRN PRN Reason: Pain, severe (8-10) Last Admin: 06/25/18 06:50 Dose: 0.5 mg Lactated Ringer's (Lactated Ringer's) 1,000 mls @ 150 mls/hr IV .Q6H40M [facility] Last Admin: 06/25/18 13:57 Dose: 150 mls/hr Piperacillin Sod/Tazobactam (Sod 3.375 gm/ Sodium Chloride) 100 mls @ 100 mls/hr IVPB Q6 [facility]; Protocol Last Admin: 06/25/18 09:48 Dose: 100 mls/hr Ketorolac Tromethamine (Toradol) 30 mg IVP Q6 PRN PRN Reason: Pain, Mild (1-3) Morphine Sulfate (Morphine) 2 mg IVP Q4 PRN PRN Reason: Pain, moderate (4-7) Last Admin: 06/25/18 11:23 Dose: 2 mg Ondansetron HCl (Zofran Inj) 4 mg IVP Q6 PRN PRN Reason: Nausea/Vomiting Physical Exam - Constitutional Appears: No Acute Distress - Head Exam Head Exam: NORMAL INSPECTION - Eye Exam Eye Exam: Normal appearance - ENT Exam ENT Exam: Mucous Membranes Moist, Normal Exam - Neck Exam Neck exam: Positive for: Normal Inspection - Respiratory Exam Respiratory Exam: Clear to Auscultation Bilateral, NORMAL BREATHING PATTERN - Cardiovascular Exam Cardiovascular Exam: REGULAR RHYTHM, +S1, +S2 - GI/Abdominal Exam GI & Abdominal Exam: Normal Bowel Sounds, Tenderness Additional comments: marked midabdominal ternderness just right of umbillicus Results - Vital Signs Recent Vital Signs: Last Vital Signs Temp 99.7 F H 06/25/18 16:28 Pulse 99 H 06/25/18 16:28 Resp 20 06/25/18 16:28 BP 117/75 06/25/18 16:28 Pulse Ox 93 L 06/25/18 16:28 - Labs Result Diagrams: 06/25/18 05:55 06/25/18 05:55 Labs: Laboratory Results - last 24 hr 06/25/18 06/25/18 06/25/18 00:00 05:55 05:55 WBC 13.4 H RBC 5.68 H Hgb 13.2 Hct 42.3 MCV 74.5 L MCH 23.3 L MCHC 31.3 L RDW 17.6 H Plt Count 290 PT INR APTT Sodium 140 Potassium 3.9 Chloride 106 Carbon Dioxide 24 Anion Gap 14 BUN 19 H Creatinine 0.7 Est GFR ( Amer) > 60 Est GFR (Non-Af Amer) > 60 Random Glucose 114 H Calcium 9.0 Total Bilirubin 0.9 AST 19 ALT 28 Alkaline Phosphatase 91 Total Protein 6.4 Albumin 3.3 L Globulin 3.1 Albumin/Globulin Ratio 1.1 Blood Type Blood Type Confirm A NEGATIVE Antibody Screen BBK History Checked 06/25/18 06/25/18 05:55 05:55 WBC RBC Hgb Hct MCV MCH MCHC RDW Plt Count PT 14.2 H INR 1.3 APTT 31.5 Sodium Potassium Chloride Carbon Dioxide Anion Gap BUN Creatinine Est GFR ( Amer) Est GFR (Non-Af Amer) Random Glucose Calcium Total Bilirubin AST ALT Alkaline Phosphatase Total Protein Albumin Globulin Albumin/Globulin Ratio Blood Type A NEGATIVE Blood Type Confirm Antibody Screen Negative BBK History Checked No verified bt - Imaging and Cardiology CT scan - abdomen Status: Image reviewed by me, Report reviewed by me Assessment & Plan (1) Diverticulitis, jejunum Assessment and Plan: Has improved somewhat on antibiotics. Risk of complications are high and patient going today to the OR. Status: Acute
[2018-06-25] MEDS ORDERED: Rocuronium 10 mg/ml (5 ml) ONE (18:03)
[2018-06-25] MEDS ORDERED: Desflurane Inhalation Anesthetic Liq (240 ml) ONE (18:31)
--- NOTE | 2018-06-25 19:33 | PCM.SURG1 ---
Surgeon's Initial Post Op Note - Surgeon's Notes Surgeon: Dr. Rodriguez Service Observer Chief: Dr. Russell PGY3 Type of Anesthesia: General Endo Anesthesia Administered By: Dr. Hahn Pre-Operative Diagnosis: Focal Peritonitis Operative Findings: See operative dictation Post-Operative Diagnosis: Necrotic perforated Small bowel Diverticulum Operation Performed: Exploratory laparoscopy converted to open small bowel resection with primary anastamosis Specimen/Specimens Removed: Small bowel with diverticulum Estimated Blood Loss: EBL {In ML}: 100 Blood Products Given: N/A Drains Used: No Drains Post-Op Condition: Good Date of Surgery/Procedure: 06/25/18 Time of Surgery/Procedure: 19:33
[2018-06-25] MEDS ORDERED: HYDROmorphone 0.5 mg/0.5 ml ISec IVP PRN (19:52)
[2018-06-26] MEDS: Morphine 4 MG/ML VIAL IVP PRN ×3 (02:00→13:30)
[2018-06-26] MEDS: Lactated Ringer's 1,000 ML IV SCH ×5 (02:07→21:28)
[2018-06-26] MEDS: Piperacillin/Tazobact 3.375 GM in Sodium Chloride 0.9% 100 ML IVPB SCH ×4 (04:24→21:30)
[2018-06-26 06:46] LABS: HEMOGLOBIN 12.2 g/dL (12.0-16.0); MEAN CELL VOLUME 74.3 fl (81.0-99.0); MEAN CORPUSCULAR HEMOGLOBIN 23.6 pg (27.0-31.0); MEAN CORPUSCULAR HGB CONC 31.8 g/dL (33.0-37.0); RBC 5.18 Mil/uL (3.80-5.20); RED CELL DISTRIBUTION WIDTH 17.6 % (11.5-14.5); WHITE BLOOD COUNT 14.8 K/uL (4.8-10.8)
[2018-06-26 07:13] LABS: ALBUMIN 2.8 g/dL (3.5-5.0); ALT/SGPT 21 U/L (9-52); AST/SGOT 16 U/L (14-36); BLOOD UREA NITROGEN 13 mg/dl (7-17); CALCIUM 8.5 mg/dL (8.4-10.2); GFR NON-AFRICAN AMERICAN > 60
[2018-06-26] MEDS: Enoxaparin 40 mg Syringe SC SCH (09:10)
--- NOTE | 2018-06-26 09:29 | CP.PCM.PN ---
<Kris Menon - Last Filed: 06/26/18 13:20> Subjective - Date & Time of Evaluation Date of Evaluation: 06/26/18 Time of Evaluation: 09:29 - Subjective Subjective: pt seen and evaluated at bedside this morning. Pt is s/p Exploratory laparoscopy converted to open small bowel resection with primary anastamosis POD#1. No acute events overnight. Sitting up at bedside in chair, comfortably, NAD. OOB/ambulating today w/o issue. Tolerating incentive spirometry. Pain is controlled with medications. Low grade fevers in high 99s otherwise with stable BP. No new complaints/concerns. Objective - Vital Signs/Intake and Output Vital Signs (last 24 hours): Temp Pulse Resp BP Pulse Ox 99.7 F H 108 H 19 109/69 95 06/26/18 01:00 06/26/18 01:00 06/26/18 01:00 06/26/18 01:00 06/26/18 01:00 Intake and Output: 06/26/18 06/26/18 06:59 18:59 Output Total 300 Balance -300 - Medications Medications: Current Medications Enoxaparin Sodium (Lovenox) 40 mg SC DAILY [facility]; Protocol Last Admin: 06/26/18 09:10 Dose: 40 mg Hydromorphone HCl (Dilaudid) 0.5 mg IVP Q3H PRN PRN Reason: Pain, severe (8-10) Lactated Ringer's (Lactated Ringer's) 1,000 mls @ 150 mls/hr IV .Q6H40M [facility] Last Admin: 06/26/18 09:14 Dose: Not Given Piperacillin Sod/Tazobactam (Sod 3.375 gm/ Sodium Chloride) 100 mls @ 100 mls/hr IVPB Q6 [facility]; Protocol Last Admin: 06/26/18 09:12 Dose: 100 mls/hr Ketorolac Tromethamine (Toradol) 30 mg IVP Q6 PRN PRN Reason: Pain, Mild (1-3) Morphine Sulfate (Morphine) 2 mg IVP Q4 PRN PRN Reason: Pain, moderate (4-7) Last Admin: 06/26/18 08:44 Dose: 2 mg Morphine Sulfate (Morphine) 2 mg IVP Q10M PRN PRN Reason: Pain, moderate (4-7) Ondansetron HCl (Zofran Inj) 4 mg IVP Q6 PRN PRN Reason: Nausea/Vomiting - Labs Labs: 06/26/18 06:25 06/26/18 06:25 PT 14.2 Seconds (9.8-13.1) H 06/25/18 05:55 INR 1.3 06/25/18 05:55 APTT 31.5 Seconds (25.6-37.1) 06/25/18 05:55 - Constitutional Appears: Non-toxic, No Acute Distress - Head Exam Head Exam: ATRAUMATIC, NORMOCEPHALIC - Eye Exam Eye Exam: EOMI, PERRL - ENT Exam ENT Exam: Mucous Membranes Moist - Neck Exam Neck Exam: Normal Inspection - Respiratory Exam Respiratory Exam: Clear to Ausculation Bilateral, NORMAL BREATHING PATTERN. absent: Rales, Rhonchi, Wheezes - Cardiovascular Exam Cardiovascular Exam: REGULAR RHYTHM, RRR, +S1, +S2. absent: Diastolic murmur, Irregular Rhythm, JVD, Murmur - GI/Abdominal Exam GI & Abdominal Exam: Soft, Tenderness, Normal Bowel Sounds. absent: Distended, Firm, Guarding, Rigid - Extremities Exam Extremities Exam: Normal Capillary Refill. absent: Calf Tenderness, Pedal Edema, Tenderness - Neurological Exam Neurological Exam: Alert, Awake, CN II-XII Intact, Normal Gait, Oriented x3 Assessment and Plan - Assessment and Plan (Free Text) Assessment: 62 y/o female with a PMHx of polyarticular osteoarthritis admitted for abdominal pain with intractable vomiting secondary to jejunal diverticulitis. Plan: 1) Jejunal Diverticulitis w Leukocytosis POD#1 -s/p Exploratory laparoscopy converted to open small bowel resection with primary anastamosis -WBC increased to 14.8 -H/H stable -monitor labs -monitor vitals -Pain control as per pain scale -IV Fluid therapy w LR -currently on IV Zosyn 3.375mg Q6H -lipase WNL -management as per surgical team -f/u GI recs -will continue to follow 2) Prophylaxis -SCDs -lovenox SC QD 3) Code status -full code <Robin Holguin D - Last Filed: 06/26/18 13:32> Objective - Vital Signs/Intake and Output Vital Signs (last 24 hours): Temp Pulse Resp BP Pulse Ox 99.7 F H 108 H 19 109/69 95 06/26/18 01:00 06/26/18 01:00 06/26/18 01:00 06/26/18 01:00 06/26/18 01:00 Intake and Output: 06/26/18 06/26/18 06:59 18:59 Output Total 300 Balance -300 - Medications Medications: Current Medications Enoxaparin Sodium (Lovenox) 50 mg SC DAILY [facility]; Protocol Hydromorphone HCl (Dilaudid) 0.5 mg IVP Q3H PRN PRN Reason: Pain, severe (8-10) Lactated Ringer's (Lactated Ringer's) 1,000 mls @ 150 mls/hr IV .Q6H40M [facility] Last Admin: 06/26/18 09:14 Dose: Not Given Piperacillin Sod/Tazobactam (Sod 3.375 gm/ Sodium Chloride) 100 mls @ 100 mls/hr IVPB Q6 [facility]; Protocol Last Admin: 06/26/18 09:12 Dose: 100 mls/hr Ketorolac Tromethamine (Toradol) 30 mg IVP Q6 PRN PRN Reason: Pain, Mild (1-3) Morphine Sulfate (Morphine) 2 mg IVP Q4 PRN PRN Reason: Pain, moderate (4-7) Last Admin: 06/26/18 08:44 Dose: 2 mg Morphine Sulfate (Morphine) 2 mg IVP Q10M PRN PRN Reason: Pain, moderate (4-7) Ondansetron HCl (Zofran Inj) 4 mg IVP Q6 PRN PRN Reason: Nausea/Vomiting - Labs Labs: 06/26/18 06:25 06/26/18 06:25 PT 14.2 Seconds (9.8-13.1) H 06/25/18 05:55 INR 1.3 06/25/18 05:55 APTT 31.5 Seconds (25.6-37.1) 06/25/18 05:55 Attending/Attestation - Attestation I have personally seen and examined this patient.: Yes I have fully participated in the care of the patient.: Yes I have reviewed all pertinent clinical information, including history, physical exam and plan: Yes Notes (Text): 06/26/18 13:29 Patient seen and examined with resident. Case discussed and agreed with assessment. Patient had small bowel resection yesterday because of perforated and necrotic diverticulum. Presently doing well.
--- NOTE | 2018-06-26 15:08 | CP.PCM.PN ---
Subjective - Date & Time of Evaluation Date of Evaluation: 06/26/18 Time of Evaluation: 15:02 - Subjective Subjective: General Surgery Progress Note for Dr. Rodriguez This 62F was seen and examined this AM at bedside no acute events reported overnight. She reports diffuse abdominal pain however it is better than it was before. She denies any fever chills chest pain or sob. She denies flatus or BM. Objective - Vital Signs/Intake and Output Vital Signs (last 24 hours): Temp Pulse Resp BP Pulse Ox 99.7 F H 108 H 19 109/69 95 06/26/18 01:00 06/26/18 01:00 06/26/18 01:00 06/26/18 01:00 06/26/18 01:00 Intake and Output: 06/26/18 06/26/18 06:59 18:59 Output Total 300 Balance -300 - Medications Medications: Current Medications Enoxaparin Sodium (Lovenox) 50 mg SC DAILY [facility]; Protocol Hydromorphone HCl (Dilaudid) 0.5 mg IVP Q3H PRN PRN Reason: Pain, severe (8-10) Lactated Ringer's (Lactated Ringer's) 1,000 mls @ 150 mls/hr IV .Q6H40M [facility] Last Admin: 06/26/18 13:33 Dose: 150 mls/hr Piperacillin Sod/Tazobactam (Sod 3.375 gm/ Sodium Chloride) 100 mls @ 100 mls/hr IVPB Q6 [facility]; Protocol Last Admin: 06/26/18 09:12 Dose: 100 mls/hr Ketorolac Tromethamine (Toradol) 30 mg IVP Q6 PRN PRN Reason: Pain, Mild (1-3) Morphine Sulfate (Morphine) 2 mg IVP Q4 PRN PRN Reason: Pain, moderate (4-7) Last Admin: 06/26/18 13:30 Dose: 2 mg Morphine Sulfate (Morphine) 2 mg IVP Q10M PRN PRN Reason: Pain, moderate (4-7) Ondansetron HCl (Zofran Inj) 4 mg IVP Q6 PRN PRN Reason: Nausea/Vomiting - Labs Labs: 06/26/18 06:25 06/26/18 06:25 PT 14.2 Seconds (9.8-13.1) H 06/25/18 05:55 INR 1.3 06/25/18 05:55 APTT 31.5 Seconds (25.6-37.1) 06/25/18 05:55 - Constitutional Appears: Non-toxic, No Acute Distress - Head Exam Head Exam: ATRAUMATIC, NORMOCEPHALIC - Eye Exam Eye Exam: EOMI, Normal appearance - ENT Exam ENT Exam: Mucous Membranes Moist - Respiratory Exam Respiratory Exam: NORMAL BREATHING PATTERN - Cardiovascular Exam Cardiovascular Exam: +S1, +S2 - GI/Abdominal Exam GI & Abdominal Exam: Soft. absent: Guarding, Rigid, Tenderness Additional comments: Dressing clean dry and intact - Neurological Exam Neurological Exam: Alert, Awake - Psychiatric Exam Psychiatric exam: Normal Affect, Normal Mood - Skin Skin Exam: Dry, Intact Assessment and Plan - Assessment and Plan (Free Text) Assessment: 62F s/p small bowel resection and primary anastamosis NPO until flatus IV abx until 8pm 06/27 Chemical dvt ppx Repleat electrolytes PRN IVF IV pain medication D/W Dr. Michael Russell PGY3
[2018-06-27] MEDS: Lactated Ringer's 1,000 ML IV SCH ×4 (04:15→18:26)
[2018-06-27] MEDS: Piperacillin/Tazobact 3.375 GM in Sodium Chloride 0.9% 100 ML IVPB SCH ×4 (04:42→21:42)
[2018-06-27 06:20] LABS: HEMOGLOBIN 12.6 g/dL (12.0-16.0); MEAN CELL VOLUME 74.9 fl (81.0-99.0); MEAN CORPUSCULAR HEMOGLOBIN 23.8 pg (27.0-31.0); MEAN CORPUSCULAR HGB CONC 31.8 g/dL (33.0-37.0); RBC 5.29 Mil/uL (3.80-5.20); RED CELL DISTRIBUTION WIDTH 16.9 % (11.5-14.5)
[2018-06-27 06:34] LABS: BLOOD UREA NITROGEN 14 mg/dl (7-17); CALCIUM 8.6 mg/dL (8.4-10.2); GFR NON-AFRICAN AMERICAN > 60
[2018-06-27] MEDS ORDERED: Povidone Iodine Topical 10% Sol ONE (07:24)
--- NOTE | 2018-06-27 07:38 | OP ---
PROCEDURE DATE: 06/25/2018 PREOPERATIVE DIAGNOSIS: Perforated Meckel's diverticulum. POSTOPERATIVE DIAGNOSIS: Perforated Meckel's diverticulum. SURGERIES: 1. Exploratory laparoscopy. 2. Laparoscopy enterolysis. 3. Exploratory laparotomy. 4. Small bowel resection including the perforated Meckel's diverticulum with [id number]-wi-[id number] staple anastomosis. SURGEON: Pedro Pablo Rodriguez MD. TYPE OF ANESTHESIA: General endotracheal. DESCRIPTION OF PROCEDURE: The patient was brought to the operating room and placed on the operating table in the supine position. After smooth induction of general endotracheal anesthesia, Venodyne boots were placed on both legs and prophylactic antibiotics were given. The Alcantar catheter was inserted into the bladder. The abdomen was prepped and draped in the usual sterile fashion. The infraumbilical area in the midline was infiltrated with local anesthetic, and incised with an 11 blade. A Veress needle was inserted and connected to the CO2 tank generating pneumoperitoneum up to 15 mmHg. A 5-mm trocar was inserted through which a 5 mm 30-degree laparoscopic video camera was inserted, and the abdomen was inspected. Multiple dense adhesions were encountered, especially in the mid to right upper quadrant areas. Two more 5 mm ports were inserted in the right lateral abdominal wall, and endograsper and endoshears alternating with 5 mm LigaSure were inserted and these were taken down until it was realized that it is the Meckel's diverticulum, which eventually was identified after taking down the adhesions as it has been already spontaneously perforated due to transmural necrosis of the apex of the diverticulum. The surgery was converted to an open laparotomy and using a #10 blade and performing a suprainfraumbilical midline incision incorporating the previous infraumbilical incision. The Conroy retractor was placed and the abdomen was inspected and palpated. The perforated Mecklel's diverticulum was identified and the BRIT blue stapler was applied proximal and distal to the diverticulum, approximately 5 to 7 cm away from it, and the corresponding mesentery was secured with a LigaSure and specimen was sent to pathology for appropriate label and for permanent section. The [id number]-gf-[id number] staple anastomosis using a BRIT 75 blue stapler was performed with joints opening between the two limbs of the bowel that was closed with a TA 60 blue stapler, and the staple line was reinforced with 2-0 silk stitches. The mesenteric defect was closed with 2-0 interrupted Vicryl stitches. The abdomen was irrigated with copious amounts of warm normal saline approximately 5 liters, which was then aspirated completely. The wound was closed in two layers using #1 continuous loop PDS for the fascia, which was reinforced at regular intervals with an internal retention suture used, #1 PDS. The skin was closed partly with yahaira and partly with 3-0 nylon sutures after closing the deeper subcutaneous tissue with interrupted 2-0 Vicryl sutures, leaving approximately 3/4 to 1-inch distance between the stitches and the yahaira, and packing of the wound all the way down to fascia with 1-inch iodoform gauze. Sterile dressings were applied. At the end of the surgery, the counts of the instruments, gauze, and needles were correct x2. The patient tolerated the surgery well and was transferred in stable condition to the recovery room. Pedro Pablo Rodriguez MD
--- NOTE | 2018-06-27 07:39 | CP.PCM.PN ---
Subjective - Date & Time of Evaluation Date of Evaluation: 06/27/18 Time of Evaluation: 07:37 - Subjective Subjective: General Surgery Progress Note for Dr. Rodriguez 62 y/o female was seen and examined this AM at bedside no acute events reported overnight. She reports diffuse abdominal pain however it is improving. She denies any fever chills chest pain or sob. Dressing noted to the incision site with sero-sanguinous drainage. Patient denies flatus or BM Objective - Vital Signs/Intake and Output Vital Signs (last 24 hours): Temp Pulse Resp BP Pulse Ox 99 F 98 H 18 123/71 95 06/27/18 00:24 06/27/18 00:24 06/27/18 00:24 06/27/18 00:24 06/27/18 00:24 - Medications Medications: Current Medications Enoxaparin Sodium (Lovenox) 50 mg SC DAILY [facility]; Protocol Hydromorphone HCl (Dilaudid) 0.5 mg IVP Q3H PRN PRN Reason: Pain, severe (8-10) Last Admin: 06/26/18 19:46 Dose: 0.5 mg Lactated Ringer's (Lactated Ringer's) 1,000 mls @ 150 mls/hr IV .Q6H40M [facility] Last Admin: 06/27/18 04:46 Dose: 150 mls/hr Piperacillin Sod/Tazobactam (Sod 3.375 gm/ Sodium Chloride) 100 mls @ 100 mls/hr IVPB Q6 [facility]; Protocol Last Admin: 06/27/18 04:42 Dose: 100 mls/hr Ketorolac Tromethamine (Toradol) 30 mg IVP Q6 PRN PRN Reason: Pain, Mild (1-3) Morphine Sulfate (Morphine) 2 mg IVP Q4 PRN PRN Reason: Pain, moderate (4-7) Last Admin: 06/26/18 13:30 Dose: 2 mg Morphine Sulfate (Morphine) 2 mg IVP Q10M PRN PRN Reason: Pain, moderate (4-7) Ondansetron HCl (Zofran Inj) 4 mg IVP Q6 PRN PRN Reason: Nausea/Vomiting Last Admin: 06/27/18 01:44 Dose: 4 mg Pantoprazole Sodium (Protonix Inj) 40 mg IVP DAILY [facility] Last Admin: 06/26/18 17:33 Dose: 40 mg - Labs Labs: 06/27/18 06:00 06/27/18 06:00 PT 14.2 Seconds (9.8-13.1) H 06/25/18 05:55 INR 1.3 06/25/18 05:55 APTT 31.5 Seconds (25.6-37.1) 06/25/18 05:55 - Constitutional Appears: Well, Non-toxic, No Acute Distress - Head Exam Head Exam: ATRAUMATIC, NORMOCEPHALIC - Eye Exam Eye Exam: Normal appearance - ENT Exam ENT Exam: Mucous Membranes Moist - Respiratory Exam Respiratory Exam: Clear to Ausculation Bilateral. absent: Accessory Muscle Use, Respiratory Distress - Cardiovascular Exam Cardiovascular Exam: REGULAR RHYTHM, +S1, +S2 - GI/Abdominal Exam GI & Abdominal Exam: Soft. absent: Guarding Additional comments: Sero-sanguinous drainage to the dressing incision clean, no dehiscence noted - Neurological Exam Neurological Exam: Alert, Awake - Psychiatric Exam Psychiatric exam: Normal Affect, Normal Mood Assessment and Plan - Assessment and Plan (Free Text) Assessment: 62 y/o female s/p small bowel resection and primary anastamosis POD2 Plan: Ice chips only IV abx until 8 pm 3 Chemical dvt ppx Repleat electrolytes PRN Continue IV Fluids Continue pain management case discussed with Dr. Michael Salazar PGY1
[2018-06-27] MEDS: Enoxaparin 60 mg Syringe SC SCH (09:11)
--- NOTE | 2018-06-27 10:20 | CP.PCM.PN ---
<Kris Menon - Last Filed: 06/27/18 10:40> Subjective - Date & Time of Evaluation Date of Evaluation: 06/27/18 Time of Evaluation: 10:20 - Subjective Subjective: POD#2. Pt seen and evaluated at bedside this morning. Sitting up in bed comfortably, NAD. Pt reports improvement in pain, and did not request pain meds since 19:30 last night. Reports +flatus and liquid BM today. Improved abdominal pain. Tolerating incentive spirometry. OOB/ambulating w/o issue. Still have low grade fevers overnight, with episodes of tachycardia during elevations of temp. Advanced to ice chips. No other complaints/concerns. Objective - Vital Signs/Intake and Output Vital Signs (last 24 hours): Temp Pulse Resp BP Pulse Ox 98.2 F 93 H 18 139/83 93 L 06/27/18 08:07 06/27/18 08:07 06/27/18 08:07 06/27/18 08:07 06/27/18 08:07 Intake and Output: 06/27/18 06/27/18 06:59 18:59 Intake Total 1800 Balance 1800 - Medications Medications: Current Medications Enoxaparin Sodium (Lovenox) 50 mg SC DAILY [facility]; Protocol Last Admin: 06/27/18 09:11 Dose: 50 mg Hydromorphone HCl (Dilaudid) 0.5 mg IVP Q3H PRN PRN Reason: Pain, severe (8-10) Last Admin: 06/26/18 19:46 Dose: 0.5 mg Lactated Ringer's (Lactated Ringer's) 1,000 mls @ 150 mls/hr IV .Q6H40M [facility] Last Admin: 06/27/18 04:46 Dose: 150 mls/hr Piperacillin Sod/Tazobactam (Sod 3.375 gm/ Sodium Chloride) 100 mls @ 100 mls/hr IVPB Q6 [facility]; Protocol Last Admin: 06/27/18 09:12 Dose: 100 mls/hr Ketorolac Tromethamine (Toradol) 30 mg IVP Q6 PRN PRN Reason: Pain, Mild (1-3) Morphine Sulfate (Morphine) 2 mg IVP Q4 PRN PRN Reason: Pain, moderate (4-7) Last Admin: 06/26/18 13:30 Dose: 2 mg Morphine Sulfate (Morphine) 2 mg IVP Q10M PRN PRN Reason: Pain, moderate (4-7) Ondansetron HCl (Zofran Inj) 4 mg IVP Q6 PRN PRN Reason: Nausea/Vomiting Last Admin: 06/27/18 08:54 Dose: 4 mg Pantoprazole Sodium (Protonix Inj) 40 mg IVP DAILY [facility] Last Admin: 06/27/18 09:11 Dose: 40 mg - Labs Labs: 06/27/18 06:00 06/27/18 06:00 PT 14.2 Seconds (9.8-13.1) H 06/25/18 05:55 INR 1.3 06/25/18 05:55 APTT 31.5 Seconds (25.6-37.1) 06/25/18 05:55 - Constitutional Appears: Non-toxic, No Acute Distress - Head Exam Head Exam: ATRAUMATIC - Eye Exam Eye Exam: EOMI, PERRL - ENT Exam ENT Exam: Mucous Membranes Moist - Neck Exam Neck Exam: Normal Inspection - Respiratory Exam Respiratory Exam: Clear to Ausculation Bilateral, NORMAL BREATHING PATTERN. absent: Rales, Rhonchi, Wheezes - Cardiovascular Exam Cardiovascular Exam: REGULAR RHYTHM, RRR, +S1, +S2. absent: JVD, Murmur - GI/Abdominal Exam GI & Abdominal Exam: Soft, Normal Bowel Sounds. absent: Distended, Firm, Guarding, Rigid, Tenderness, Rebound - Extremities Exam Extremities Exam: Normal Inspection, Pedal Edema (trace). absent: Calf Tenderness, Tenderness - Neurological Exam Neurological Exam: Alert, Awake, CN II-XII Intact, Normal Gait, Oriented x3 - Psychiatric Exam Psychiatric exam: Normal Affect, Normal Mood - Skin Skin Exam: Dry, Intact, Warm Assessment and Plan - Assessment and Plan (Free Text) Assessment: 62 y/o female with a PMHx of polyarticular osteoarthritis admitted for abdominal pain with intractable vomiting secondary to jejunal diverticulitis whom underwent explorative laparoscopy to open bowel resection with primary anastamosis. Plan: 1) Jejunal Diverticulitis w Leukocytosis POD#2 -s/p Exploratory laparoscopy converted to open small bowel resection with primary anastamosis -WBC increased to 15.0 -currently on IV Zosyn 3.375mg Q6H -due to increasing leukocytosis with associated low grade fevers/tachycardia, re commend dual abx coverage for intra-abdominal infection -monitor labs -monitor vitals -Pain control as per pain scale -Currently on LR 150mls/hr, recommend decrease and consider switch to D5/0.45NS if pt remains NPO -f/u CXR 2) Prophylaxis -SCDs -lovenox 50mg? 3) Code status -full code -will sign off case, further management as per gen-surg team -re-consult as needed <Robin Holguin - Last Filed: 06/27/18 11:17> Objective - Vital Signs/Intake and Output Vital Signs (last 24 hours): Temp Pulse Resp BP Pulse Ox 98.2 F 93 H 18 139/83 93 L 06/27/18 08:07 06/27/18 08:07 06/27/18 08:07 06/27/18 08:07 06/27/18 08:07 Intake and Output: 06/27/18 06/27/18 06:59 18:59 Intake Total 1800 Balance 1800 - Medications Medications: Current Medications Enoxaparin Sodium (Lovenox) 50 mg SC DAILY [facility]; Protocol Last Admin: 06/27/18 09:11 Dose: 50 mg Hydromorphone HCl (Dilaudid) 0.5 mg IVP Q3H PRN PRN Reason: Pain, severe (8-10) Last Admin: 06/26/18 19:46 Dose: 0.5 mg Lactated Ringer's (Lactated Ringer's) 1,000 mls @ 150 mls/hr IV .Q6H40M [facility] Last Admin: 06/27/18 04:46 Dose: 150 mls/hr Piperacillin Sod/Tazobactam (Sod 3.375 gm/ Sodium Chloride) 100 mls @ 100 mls/hr IVPB Q6 [facility]; Protocol Last Admin: 06/27/18 09:12 Dose: 100 mls/hr Ketorolac Tromethamine (Toradol) 30 mg IVP Q6 PRN PRN Reason: Pain, Mild (1-3) Morphine Sulfate (Morphine) 2 mg IVP Q4 PRN PRN Reason: Pain, moderate (4-7) Last Admin: 06/26/18 13:30 Dose: 2 mg Morphine Sulfate (Morphine) 2 mg IVP Q10M PRN PRN Reason: Pain, moderate (4-7) Ondansetron HCl (Zofran Inj) 4 mg IVP Q6 PRN PRN Reason: Nausea/Vomiting Last Admin: 06/27/18 08:54 Dose: 4 mg Pantoprazole Sodium (Protonix Inj) 40 mg IVP DAILY [facility] Last Admin: 06/27/18 09:11 Dose: 40 mg - Labs Labs: 06/27/18 06:00 06/27/18 06:00 PT 14.2 Seconds (9.8-13.1) H 06/25/18 05:55 INR 1.3 06/25/18 05:55 APTT 31.5 Seconds (25.6-37.1) 06/25/18 05:55 Attending/Attestation - Attestation I have personally seen and examined this patient.: Yes I have fully participated in the care of the patient.: Yes I have reviewed all pertinent clinical information, including history, physical exam and plan: Yes Notes (Text): 06/27/18 11:11 Patient seen and examined. Case discussed and agreed with assessment. Patient is a 62 yo female who was initially admitted to medical service because of diverticulitis. The plan was to treat patient conservatively with IV antibiotics but it was later found out that she had a perforated small bowel diverticulum. Explore lap was done and patient had small bowel resection. Patient now is on surgical service and we are now on medical consult. We agreed with plan but would also recommend to add Flagyl for better coverage.
--- NOTE | 2018-06-27 12:57 | RAD ---
Date of service: 06/27/2018 PROCEDURE: CHEST RADIOGRAPH, 1 VIEW HISTORY: fever COMPARISON: 08/09/2015 FINDINGS: LUNGS: Clear. PLEURA: No pneumothorax or pleural fluid seen. CARDIOVASCULAR: Atherosclerotic calcifications identified primarily aortic arch. No radiographic findings to suggest acute or significant cardiovascular disease. OSSEOUS STRUCTURES: No significant abnormalities. VISUALIZED UPPER ABDOMEN: Normal. OTHER FINDINGS: None. IMPRESSION: No active disease. No acute/significant interval changes.
--- NOTE | 2018-06-27 17:11 | CARD ---
APPROVED REPORT Date of service: 06/27/2018 EKG Measurement Heart [id number] <Conclusion> Normal sinus rhythm Normal ECG
--- NOTE | 2018-06-27 22:58 | CP.PCM.PN ---
Subjective - Date & Time of Evaluation Date of Evaluation: 06/27/18 Time of Evaluation: 16:00 - Subjective Subjective: Doing well with expected postop pain Objective - Vital Signs/Intake and Output Vital Signs (last 24 hours): Temp Pulse Resp BP Pulse Ox 98.4 F 85 20 126/72 94 L 06/27/18 15:51 06/27/18 15:51 06/27/18 15:51 06/27/18 15:51 06/27/18 15:51 Intake and Output: 06/27/18 06/28/18 18:59 06:59 Intake Total 1800 Balance 1800 - Medications Medications: Current Medications Enoxaparin Sodium (Lovenox) 50 mg SC DAILY [facility]; Protocol Last Admin: 06/27/18 09:11 Dose: 50 mg Hydromorphone HCl (Dilaudid) 0.5 mg IVP Q3H PRN PRN Reason: Pain, severe (8-10) Last Admin: 06/26/18 19:46 Dose: 0.5 mg Lactated Ringer's (Lactated Ringer's) 1,000 mls @ 150 mls/hr IV .Q6H40M [facility] Last Admin: 06/27/18 18:26 Dose: Not Given Piperacillin Sod/Tazobactam (Sod 3.375 gm/ Sodium Chloride) 100 mls @ 100 mls/hr IVPB Q6 [facility]; Protocol Last Admin: 06/27/18 21:42 Dose: 100 mls/hr Ketorolac Tromethamine (Toradol) 30 mg IVP Q6 PRN PRN Reason: Pain, Mild (1-3) Morphine Sulfate (Morphine) 2 mg IVP Q4 PRN PRN Reason: Pain, moderate (4-7) Last Admin: 06/26/18 13:30 Dose: 2 mg Morphine Sulfate (Morphine) 2 mg IVP Q10M PRN PRN Reason: Pain, moderate (4-7) Ondansetron HCl (Zofran Inj) 4 mg IVP Q6 PRN PRN Reason: Nausea/Vomiting Last Admin: 06/27/18 08:54 Dose: 4 mg Pantoprazole Sodium (Protonix Inj) 40 mg IVP DAILY [facility] Last Admin: 06/27/18 09:11 Dose: 40 mg - Labs Labs: 06/27/18 06:00 06/27/18 06:00 PT 14.2 Seconds (9.8-13.1) H 06/25/18 05:55 INR 1.3 06/25/18 05:55 APTT 31.5 Seconds (25.6-37.1) 06/25/18 05:55 - Head Exam Head Exam: ATRAUMATIC - Eye Exam Eye Exam: Normal appearance - ENT Exam ENT Exam: Normal Exam - Neck Exam Neck Exam: Full ROM - Respiratory Exam Respiratory Exam: Clear to Ausculation Bilateral - Cardiovascular Exam Cardiovascular Exam: REGULAR RHYTHM - GI/Abdominal Exam GI & Abdominal Exam: Soft, Normal Bowel Sounds Assessment and Plan (1) Diverticulitis, jejunum Assessment & Plan: Post op for jejunal diverticulitis. Recovering as would be expected. Continue IV antibiotics. Status: Acute
[2018-06-28] MEDS: Lactated Ringer's 1,000 ML IV SCH ×2 (00:15→04:19)
[2018-06-28] MEDS ORDERED: DiphenhydrAMINE 12.5 mg/5 ml LIQ UD (5 ml) PO STA (01:04)
[2018-06-28] MEDS: Piperacillin/Tazobact 3.375 GM in Sodium Chloride 0.9% 100 ML IVPB SCH (04:13)
[2018-06-28] MEDS ORDERED: Lactated Ringer's 1,000 ML IV SCH (08:03)
--- NOTE | 2018-06-28 08:45 | CP.PCM.PN ---
Subjective - Date & Time of Evaluation Date of Evaluation: 06/28/18 Time of Evaluation: 08:45 - Subjective Subjective: General Surgery Progress Note for Dr. Rodriguez 62 y/o female was seen and examined this AM at bedside. She reports diffuse abdominal pain however it is improving. Patient states she had multiple episodes of diarrhea yesterday and overnight. She denies any fever chills chest pain or sob. Dressing noted to the incision site with sero-sanguinous drainage. Patient advised she can be started on clear liquids today. Objective - Vital Signs/Intake and Output Vital Signs (last 24 hours): Temp Pulse Resp BP Pulse Ox 97.3 F L 79 18 130/84 95 06/28/18 08:24 06/28/18 08:24 06/28/18 08:24 06/28/18 08:24 06/28/18 08:24 - Medications Medications: Current Medications Enoxaparin Sodium (Lovenox) 50 mg SC DAILY [facility]; Protocol Last Admin: 06/27/18 09:11 Dose: 50 mg Hydromorphone HCl (Dilaudid) 0.5 mg IVP Q3H PRN PRN Reason: Pain, severe (8-10) Last Admin: 06/26/18 19:46 Dose: 0.5 mg Lactated Ringer's (Lactated Ringer's) 1,000 mls @ 100 mls/hr IV .Q10H [facility] Ketorolac Tromethamine (Toradol) 30 mg IVP Q6 PRN PRN Reason: Pain, Mild (1-3) Morphine Sulfate (Morphine) 2 mg IVP Q4 PRN PRN Reason: Pain, moderate (4-7) Last Admin: 06/26/18 13:30 Dose: 2 mg Morphine Sulfate (Morphine) 2 mg IVP Q10M PRN PRN Reason: Pain, moderate (4-7) Ondansetron HCl (Zofran Inj) 4 mg IVP Q6 PRN PRN Reason: Nausea/Vomiting Last Admin: 06/27/18 08:54 Dose: 4 mg Pantoprazole Sodium (Protonix Inj) 40 mg IVP DAILY [facility] Last Admin: 06/27/18 09:11 Dose: 40 mg - Labs Labs: 06/27/18 06:00 06/27/18 06:00 PT 14.2 Seconds (9.8-13.1) H 06/25/18 05:55 INR 1.3 06/25/18 05:55 APTT 31.5 Seconds (25.6-37.1) 06/25/18 05:55 - Constitutional Appears: Well, Non-toxic, No Acute Distress - Head Exam Head Exam: ATRAUMATIC, NORMOCEPHALIC - Eye Exam Eye Exam: Normal appearance - ENT Exam ENT Exam: Mucous Membranes Moist - Respiratory Exam Respiratory Exam: Clear to Ausculation Bilateral, NORMAL BREATHING PATTERN. absent: Accessory Muscle Use, Respiratory Distress - Cardiovascular Exam Cardiovascular Exam: REGULAR RHYTHM, +S1, +S2 - GI/Abdominal Exam GI & Abdominal Exam: Soft, Normal Bowel Sounds. absent: Distended, Firm, Guarding, Rigid - Neurological Exam Neurological Exam: Alert, Awake, Oriented x3 - Psychiatric Exam Psychiatric exam: Normal Affect, Normal Mood - Skin Skin Exam: Normal Color Assessment and Plan - Assessment and Plan (Free Text) Assessment: 62 y/o female s/p small bowel resection and primary anastamosis POD3 Plan: Start clear liquids today D/C Abx at this time Chemical dvt ppx Repleat electrolytes PRN Continue IV Fluids Continue pain management patient can shower C. diff- negative Dressing changed, continue with packing/DSd case discussed with Dr. Michael Salazar PGY1
[2018-06-28 09:12] LABS: BASO # 0.1 K/uL (0.0-0.2); BASO % 0.7 % (0.0-2.0); EOS # 0.9 K/uL (0.0-0.7); EOS % 7.9 % (0.0-4.0); HEMOGLOBIN 12.2 g/dL (12.0-16.0); LYMPH # 1.5 K/uL (1.0-4.3); MEAN CELL VOLUME 75.5 fl (81.0-99.0); MEAN CORPUSCULAR HEMOGLOBIN 23.6 pg (27.0-31.0); MEAN CORPUSCULAR HGB CONC 31.3 g/dL (33.0-37.0); MEAN PLATELET VOLUME 7.6 fl (7.2-11.7); MONO # 0.7 K/uL (0.0-0.8); MONO % 6.4 % (0.0-10.0); NEUT # 8.3 K/uL (1.8-7.0); NRBC % 0.1 % (0.0-0.0); RBC 5.17 Mil/uL (3.80-5.20); RED CELL DISTRIBUTION WIDTH 17.3 % (11.5-14.5); WHITE BLOOD COUNT 11.5 K/uL (4.8-10.8)
[2018-06-28] MEDS ORDERED: Iodoform 1/2inx15ft BOT EXT ONE (09:24)
[2018-06-28 09:32] LABS: ALT/SGPT 29 U/L (9-52); AST/SGOT 15 U/L (14-36); BLOOD UREA NITROGEN 14 mg/dl (7-17); CALCIUM 8.8 mg/dL (8.4-10.2); GFR NON-AFRICAN AMERICAN > 60
[2018-06-28] MEDS: Enoxaparin 60 mg Syringe SC SCH (10:02)
[2018-06-28] MEDS: Pantoprazole 40 mg EC Tab PO SCH (18:29)
[2018-06-29 07:15] LABS: ALBUMIN 2.8 g/dL (3.5-5.0); ALT/SGPT 27 U/L (9-52); AST/SGOT 19 U/L (14-36); BLOOD UREA NITROGEN 7 mg/dl (7-17); CALCIUM 8.5 mg/dL (8.4-10.2); GFR NON-AFRICAN AMERICAN > 60
--- NOTE | 2018-06-29 07:35 | CP.PCM.PN ---
Subjective - Date & Time of Evaluation Date of Evaluation: 06/29/18 Time of Evaluation: 07:15 - Subjective Subjective: General Surgery Progress Note for Dr. Rodriguez Patient seen and examined at bedside. No acute event overnight. She reports abdominal pain is improving. Patient tolerating clear liquid diet. She reports BMs and Flatus. She has been OOB to chair, ambulating, and using IS. Denies fever/chills, nausea/vomiting, diarrhea, constipation, urinary symptoms. Objective - Vital Signs/Intake and Output Vital Signs (last 24 hours): Temp Pulse Resp BP Pulse Ox 98.5 F 88 18 111/64 95 06/29/18 00:38 06/29/18 00:38 06/29/18 00:38 06/29/18 00:38 06/29/18 00:38 - Medications Medications: Current Medications Acetaminophen (Tylenol 325mg Tab) 650 mg PO Q6 PRN PRN Reason: Pain, Mild (1-3) Enoxaparin Sodium (Lovenox) 50 mg SC DAILY [facility]; Protocol Last Admin: 06/28/18 10:02 Dose: 50 mg Oxycodone HCl (Oxycodone Immediate Release Tab) 5 mg PO Q6 PRN PRN Reason: Pain, moderate (4-7) Pantoprazole Sodium (Protonix Ec Tab) 40 mg PO DAILY [facility] Last Admin: 06/28/18 18:29 Dose: 40 mg - Labs Labs: 06/28/18 08:50 06/29/18 05:40 PT 14.2 Seconds (9.8-13.1) H 06/25/18 05:55 INR 1.3 06/25/18 05:55 APTT 31.5 Seconds (25.6-37.1) 06/25/18 05:55 - Additional Findings Additional findings: - Constitutional Appears: Well, Non-toxic, No Acute Distress - Head Exam Head Exam: ATRAUMATIC, NORMOCEPHALIC - Eye Exam Eye Exam: Normal appearance - ENT Exam ENT Exam: Mucous Membranes Moist - Respiratory Exam Respiratory Exam: Clear to Ausculation Bilateral, NORMAL BREATHING PATTERN. absent: Accessory Muscle Use, Respiratory Distress - Cardiovascular Exam Cardiovascular Exam: REGULAR RHYTHM, +S1, +S2 - GI/Abdominal Exam GI & Abdominal Exam: Soft, Normal Bowel Sounds. absent: Distended, Firm, Guarding, Rigid, Tenderness Additional comments: Midline incision, with yahaira and skin sutures, open intermittently, packing and dressing changed, no drainage noted today - Neurological Exam Neurological Exam: Alert, Awake, Oriented x3 - Psychiatric Exam Psychiatric exam: Normal Affect, Normal Mood - Skin Skin Exam: Normal Color Assessment and Plan - Assessment and Plan (Free Text) Assessment: 62 F s/p small bowel resection and primary anastamosis POD#4 Plan: FLD, possible regular diet 3/ Chemical dvt ppx Replete electrolytes PRN Continue pain management patient may shower C. diff- negative Daily dressing and packing change Discussed with Dr. Michael Mejia PGY2
[2018-06-29] MEDS: Pantoprazole 40 mg EC Tab PO SCH (08:18)
[2018-06-29] MEDS: Enoxaparin 60 mg Syringe SC SCH (08:18)
[2018-06-29 09:23] LABS: BASO % 0.4 % (0.0-2.0); EOS % 10.6 % (0.0-4.0); HEMOGLOBIN 12.3 g/dL (12.0-16.0); LYMPH # 1.3 K/uL (1.0-4.3); LYMPH % 13.6 % (20.0-40.0); MEAN CELL VOLUME 74.2 fl (81.0-99.0); MEAN CORPUSCULAR HEMOGLOBIN 23.9 pg (27.0-31.0); MEAN CORPUSCULAR HGB CONC 32.1 g/dL (33.0-37.0); MEAN PLATELET VOLUME 7.5 fl (7.2-11.7); MONO # 0.8 K/uL (0.0-0.8); NEUT # 6.3 K/uL (1.8-7.0); NEUT % 67.4 % (50.0-75.0); NRBC % 0.2 % (0.0-0.0); RBC 5.16 Mil/uL (3.80-5.20); RED CELL DISTRIBUTION WIDTH 16.8 % (11.5-14.5); WHITE BLOOD COUNT 9.4 K/uL (4.8-10.8)
[2018-06-29] MEDS: oxyCODONE 5 mg Immediate Release Tab PO PRN ×2 (10:00→16:54)
[2018-06-29] MEDS: Magnesium Oxide 400 mg Tab UD PO SCH ×2 (12:00→16:46)
[2018-06-29] MEDS: Potassium Chloride 20 mEq/15 ml LIQ UD PO SCH ×2 (12:02→14:02)
[2018-06-29] MEDS ORDERED: Potassium Chloride 20 mEq/15 ml LIQ UD PO ONE (15:00)
[2018-06-30 00:57] VITALS: O2SAT 95
[2018-06-30 07:40] LABS: BASO # 0.1 K/uL (0.0-0.2); EOS # 0.8 K/uL (0.0-0.7); EOS % 8.9 % (0.0-4.0); HEMOGLOBIN 12.1 g/dL (12.0-16.0); LYMPH # 1.4 K/uL (1.0-4.3); LYMPH % 14.8 % (20.0-40.0); MEAN CELL VOLUME 74.1 fl (81.0-99.0); MEAN CORPUSCULAR HEMOGLOBIN 23.9 pg (27.0-31.0); MEAN CORPUSCULAR HGB CONC 32.2 g/dL (33.0-37.0); MEAN PLATELET VOLUME 7.6 fl (7.2-11.7); MONO # 0.7 K/uL (0.0-0.8); MONO % 7.3 % (0.0-10.0); NEUT # 6.4 K/uL (1.8-7.0); NRBC % 0.1 % (0.0-0.0); RBC 5.05 Mil/uL (3.80-5.20); RED CELL DISTRIBUTION WIDTH 16.7 % (11.5-14.5); WHITE BLOOD COUNT 9.4 K/uL (4.8-10.8)
[2018-06-30 08:08] VITALS: BP 130/81; PULSE 69; RESP 20; TEMP 98.4
[2018-06-30 08:46] LABS: ALBUMIN 3.1 g/dL (3.5-5.0); ALT/SGPT 29 U/L (9-52); AST/SGOT 15 U/L (14-36); BLOOD UREA NITROGEN 5 mg/dl (7-17); CALCIUM 8.9 mg/dL (8.4-10.2); GFR NON-AFRICAN AMERICAN > 60
[2018-06-30] MEDS: Enoxaparin 60 mg Syringe SC SCH (09:22)
[2018-06-30] MEDS: Pantoprazole 40 mg EC Tab PO SCH (09:22)
--- NOTE | 2018-06-30 09:49 | CP.PCM.PN ---
Subjective - Date & Time of Evaluation Date of Evaluation: 06/30/18 Time of Evaluation: 10:14 - Subjective Subjective: General Surgery Progress Note for Dr. Rodriguez Patient seen and examined at bedside. No acute event overnight. She denies pain today. Patient tolerating clear/full liquid diet. She reports BMs and Flatus. She has been OOB to chair, ambulating, and using IS. She is eager to go home. Denies fever/chills, nausea/vomiting, diarrhea, constipation, urinary symptoms. Objective - Vital Signs/Intake and Output Vital Signs (last 24 hours): Temp Pulse Resp BP Pulse Ox 98.4 F 69 20 130/81 95 06/30/18 08:07 06/30/18 08:07 06/30/18 08:07 06/30/18 08:07 06/30/18 08:07 - Medications Medications: Current Medications Acetaminophen (Tylenol 325mg Tab) 650 mg PO Q6 PRN PRN Reason: Pain, Mild (1-3) Oxycodone HCl (Oxycodone Immediate Release Tab) 5 mg PO Q6 PRN PRN Reason: Pain, moderate (4-7) Last Admin: 06/29/18 16:54 Dose: 5 mg Pantoprazole Sodium (Protonix Ec Tab) 40 mg PO DAILY [facility] Last Admin: 06/30/18 09:22 Dose: 40 mg - Labs Labs: 06/30/18 06:45 06/30/18 06:45 PT 14.2 Seconds (9.8-13.1) H 06/25/18 05:55 INR 1.3 06/25/18 05:55 APTT 31.5 Seconds (25.6-37.1) 06/25/18 05:55 - Additional Findings Additional findings: - Constitutional Appears: Well, Non-toxic, No Acute Distress - Head Exam Head Exam: ATRAUMATIC, NORMOCEPHALIC - Eye Exam Eye Exam: Normal appearance - ENT Exam ENT Exam: Mucous Membranes Moist - Respiratory Exam Respiratory Exam: Clear to Ausculation Bilateral, NORMAL BREATHING PATTERN. absent: Accessory Muscle Use, Respiratory Distress - Cardiovascular Exam Cardiovascular Exam: REGULAR RHYTHM, +S1, +S2 - GI/Abdominal Exam GI & Abdominal Exam: Soft, Normal Bowel Sounds. absent: Distended, Firm, Guarding, Rigid, Tenderness Additional comments: Midline incision, with yahaira and skin sutures, open intermittently, packing and dressing changed, no drainage noted today - Neurological Exam Neurological Exam: Alert, Awake, Oriented x3 - Psychiatric Exam Psychiatric exam: Normal Affect, Normal Mood - Skin Skin Exam: Normal Color Assessment and Plan - Assessment and Plan (Free Text) Assessment: 62 F s/p small bowel resection and primary anastamosis POD#5 Plan: possible regular diet today Chemical dvt ppx Replete electrolytes PRN Daily dressing and packing change which will be continues at home until follow up Discussed with Dr. Michael Mejia PGY2
--- NOTE | 2018-06-30 12:28 | CP.PCM.DIS ---
Provider - Provider Date of Admission: 06/24/18 15:29 Attending physician: Pedro Pablo Rodriguez MD Consults: 06/24/18 14:50 Surgery [General Surgery Consult] Stat Comment: Consulting Provider: Pedro Pablo Rodriguez Consulting Physician: Pedro Pablo Rodriguez Reason for Consult: jejunal diverticulum, intractable pain/vomiting 06/24/18 14:51 Gastroenterology Consult Stat Comment: Consulting Provider: Michel Nath Consulting Physician: Michel Nath Reason for Consult: jejunal diverticulum- infectious/inflam Time Spent in preparation of Discharge (in minutes): 40 Diagnosis - Discharge Diagnosis (1) [place] diverticulum Status: Resolved Hospital Course - Lab Results Lab Results: Micro Results 06/24/18 15:00 Blood-Venous Blood Culture - Final NO GROWTH AFTER 5 DAYS 06/24/18 15:00 Blood-Venous Gram Stain - Final TEST NOT PERFORMED 06/24/18 15:15 Blood-Venous Blood Culture - Final NO GROWTH AFTER 5 DAYS 06/24/18 15:15 Blood-Venous Gram Stain - Final TEST NOT PERFORMED Most Recent Lab Values WBC 9.4 K/uL (4.8-10.8) 06/30/18 06:45 RBC 5.05 Mil/uL (3.80-5.20) 06/30/18 06:45 Hgb 12.1 g/dL (12.0-16.0) 06/30/18 06:45 Hct 37.5 % (34.0-47.0) 06/30/18 06:45 MCV 74.1 fl (81.0-99.0) L 06/30/18 06:45 MCH 23.9 pg (27.0-31.0) L 06/30/18 06:45 MCHC 32.2 g/dL (33.0-37.0) L 06/30/18 06:45 RDW 16.7 % (11.5-14.5) H 06/30/18 06:45 Plt Count 337 K/uL (130-400) 06/30/18 06:45 MPV 7.6 fl (7.2-11.7) 06/30/18 06:45 Neut % (Auto) 68.0 % (50.0-75.0) 06/30/18 06:45 Lymph % (Auto) 14.8 % (20.0-40.0) L 06/30/18 06:45 [place] % (Auto) 7.3 % (0.0-10.0) 06/30/18 06:45 Eos % (Auto) 8.9 % (0.0-4.0) H 06/30/18 06:45 Baso % (Auto) 1.0 % (0.0-2.0) 06/30/18 06:45 Neut # (Auto) 6.4 K/uL (1.8-7.0) 06/30/18 06:45 Lymph # (Auto) 1.4 K/uL (1.0-4.3) 06/30/18 06:45 [place] # (Auto) 0.7 K/uL (0.0-0.8) 06/30/18 06:45 Eos # (Auto) 0.8 K/uL (0.0-0.7) H 06/30/18 06:45 Baso # (Auto) 0.1 K/uL (0.0-0.2) 06/30/18 06:45 Neutrophils % (Manual) 88 % (42-75) H 06/24/18 09:55 Band Neutrophils % 1 % (0-2) 06/24/18 09:55 Lymphocytes % (Manual) 5 % (20-50) L 06/24/18 09:55 Monocytes % (Manual) 6 % (0-10) 06/24/18 09:55 Platelet Estimate Normal (NORMAL) 06/24/18 09:55 Anisocytosis (manual) Slight 06/24/18 09:55 Tear Drop Cells Slight 06/24/18 09:55 Ovalocytes Slight 06/24/18 09:55 PT 14.2 Seconds (9.8-13.1) H 06/25/18 05:55 INR 1.3 06/25/18 05:55 APTT 31.5 Seconds (25.6-37.1) 06/25/18 05:55 pCO2 36 mm/Hg (35-45) 06/24/18 16:28 pO2 63 mm/Hg (80-100) L 06/24/18 16:28 HCO3 24.2 mmol/L (21-28) 06/24/18 16:28 ABG pH 7.42 (7.35-7.45) 06/24/18 16:28 ABG Total CO2 24.5 mmol/L (22-28) 06/24/18 16:28 ABG O2 Saturation 95.8 % (95-98) 06/24/18 16:28 ABG Base Excess -0.7 mmol/L (-2.0-3.0) 06/24/18 16:28 Leonard Test Yes 06/24/18 16:28 ABG Potassium 4.1 mmol/L (3.6-5.2) 06/24/18 16:28 A-a O2 Difference 42.0 mm/Hg 06/24/18 16:28 Sodium 135.0 mmol/L (132-148) 06/24/18 16:28 Chloride 106.0 mmol/L (98-107) 06/24/18 16:28 Glucose 158 mg/dL (65-105) H 06/24/18 16:28 Lactate 1.2 mmol/L (0.7-2.1) 06/24/18 16:28 FiO2 21.0 % 06/24/18 16:28 Sodium 142 mmol/l (132-148) 06/30/18 06:45 Potassium 3.8 MMOL/L (3.6-5.0) 06/30/18 06:45 Chloride 101 mmol/L (98-107) 06/30/18 06:45 Carbon Dioxide 29 mmol/L (22-30) 06/30/18 06:45 Anion Gap 16 (10-20) 06/30/18 06:45 BUN 5 mg/dl (7-17) L 06/30/18 06:45 Creatinine 0.5 mg/dl (0.7-1.2) L 06/30/18 06:45 Est GFR ( Amer) > 60 06/30/18 06:45 Est GFR (Non-Af Amer) > 60 06/30/18 06:45 Random Glucose 83 mg/dL (65-105) 06/30/18 06:45 Calcium 8.9 mg/dL (8.4-10.2) 06/30/18 06:45 Phosphorus 4.1 mg/dl (2.5-4.5) 06/30/18 06:45 Magnesium 1.8 MG/DL (1.6-2.3) 06/30/18 06:45 Total Bilirubin 0.4 mg/dl (0.2-1.3) 06/30/18 06:45 AST 15 U/L (14-36) 06/30/18 06:45 ALT 29 U/L (9-52) 06/30/18 06:45 Alkaline Phosphatase 73 U/L (38-126) 06/30/18 06:45 Total Protein 6.0 G/DL (6.3-8.2) L 06/30/18 06:45 Albumin 3.1 g/dL (3.5-5.0) L 06/30/18 06:45 Globulin 3.0 gm/dL (2.2-3.9) 06/30/18 06:45 Albumin/Globulin Ratio 1.0 (1.0-2.1) 06/30/18 06:45 Lipase 24 U/L (23-300) 06/24/18 09:55 Arterial Blood Potassium 4.1 mmol/L (3.6-5.2) 06/24/18 16:28 Urine Color Yellow (YELLOW) 06/24/18 13:00 Urine Clarity Clear (Clear) 06/24/18 13:00 Urine pH 6.0 (5.0-8.0) 06/24/18 13:00 Ur Specific [place] > 1.060 (1.003-1.030) H 06/24/18 13:00 Urine Protein Negative mg/dL (NEGATIVE) 06/24/18 13:00 Urine Glucose (UA) Neg mg/dL (NEGATIVE) 06/24/18 13:00 Urine Ketones Trace mg/dL (NEGATIVE) 06/24/18 13:00 Urine Blood Negative (NEGATIVE) 06/24/18 13:00 Urine Nitrate Negative (NEGATIVE) 06/24/18 13:00 Urine Bilirubin Negative (NEGATIVE) 06/24/18 13:00 Urine Urobilinogen 0.2-1.0 mg/dL (0.2-1.0) 06/24/18 13:00 Ur Leukocyte Esterase Neg [place]n/uL (Negative) 06/24/18 13:00 Urine RBC (Auto) 2 /hpf (0-3) 06/24/18 13:00 Urine Microscopic WBC < 1 /hpf (0-5) 06/24/18 13:00 Ur Squamous Epith Cells 1 /hpf (0-5) 06/24/18 13:00 C. difficile Ag & Toxin Negative (NEGATIVE) 06/27/18 15:00 Blood Type A NEGATIVE 06/25/18 05:55 Blood Type Confirm A NEGATIVE 06/25/18 00:00 Antibody Screen Negative 06/25/18 05:55 BBK History Checked No verified bt 06/25/18 05:55 - Hospital Course Hospital Course: 62F with a PMH of HTN, arthritis and a PSH of a laparoscopic sleeve gastrectomy who presented to the ED on 06/24/18 for abdominal pain and vomiting. CT in the ED was significant for small bowel thickening possibly due to infection or mass and a possible jejunal diverticula. She was taken to the OR on 06/25 for Exploratory laparoscopy which was converted to open and had a small bowel resection with primary anastamosis done for intraoperative findings of Necrotic perforated Small bowel diverticulum. Pathology showed diverticulum with transmural necrosis. She was initially kept NPO and on IV Antibiotics post op. Antibiotics were then stopped and pt was advanced to clear liquids which she tolerated. Abdominal wound is loosely closed with yahaira and iodaform packing in between yahaira. Packing is being changed daily. Pt is ambulating and tolerating diet and requesting to go home. Discharge Exam - Head Exam Head Exam: ATRAUMATIC, NORMOCEPHALIC - Eye Exam Eye Exam: EOMI, Normal appearance - Respiratory Exam Respiratory Exam: NORMAL BREATHING PATTERN. absent: Respiratory Distress - Cardiovascular Exam Cardiovascular Exam: +S1, +S2 - GI/Abdominal Exam GI & Abdominal Exam: Soft. absent: Distended, Firm, Guarding, Rigid, Tenderness Additional comments: [place] on abdominal wound with iodaform packing in between - Neurological Exam Neurological exam: Alert, CN II-XII Intact, Oriented x3 - Psychiatric Exam Psychiatric exam: Normal Affect, Normal Mood - Skin Skin Exam: Dry, Normal Color, Warm Discharge Plan - Follow Up Plan Condition: FAIR Disposition: HOME/ ROUTINE Patient education suggested?: Yes Instructions: Diverticulitis (DC), Small Bowel Resection (DC) Additional Instructions: follow up with your primary MD 1 week Follow up with Dr. Rodriguez in his office in 1 week, call to make appointment Avoid heavy lifting for 4 weeks Continue daily packing changes with iodaform at home, pack less and less each day May shower but do not take a bath or swim Referrals: Michel Nath MD [Staff Provider] - Pedro Pablo Rodriguez MD [Staff Provider] -
[2018-06-30] MEDS ORDERED: Iodoform 1/2inx15ft BOT EXT ONE (15:25)
== END 2018-06-30 15:50 | disposition home or self-care (01) | DRG 329 ==
LOC: H.ER 08:19 → H.ERHOLD 15:29 → H.MEDSURG1 17:07
PROVIDERS: ADMIT Specialist; ATTEND Specialist
PROC: 0DBA0ZZ Excision of Jejunum, Open Approach (ICD-10-PCS; principal; 2018-06-25 13:30)
DX: Q43.0 Meckel's diverticulum (displaced) (hypertrophic) (principal); K65.8 Other peritonitis; Z53.31 Laparoscopic surgical procedure converted to open procedure; E66.9 Obesity, unspecified; Z68.39 Body mass index [BMI] 39.0-39.9, adult; M15.9 Polyosteoarthritis, unspecified; I10 Essential (primary) hypertension; F41.9 Anxiety disorder, unspecified; Z96.652 Presence of left artificial knee joint; Z98.84 Bariatric surgery status; Z87.442 Personal history of urinary calculi; Z87.891 Personal history of nicotine dependence; Z90.49 Acquired absence of other specified parts of digestive tract